=== PATIENT | female | born 1945 | race Caucasian/White ===

== ENCOUNTER 2023-11-12 07:58 | Outpatient (OUT) | payer MEDICARE, OTHER, SELFPAY ==
--- NOTE | 2023-11-12 08:17 | MM_ITS ---
Patient Name: LUIS CARLOS SERRANO MR#: [id number] : 1945 Exam Date: 11/12/2023 Ordering Doctor: DR Damon Fink . RADIOLOGY REPORT PROCEDURE: MM TOMOSYNTHESIS SCREENING BI COMPARISON: MG MAMM SCREEN 3D MAU CAD, 07/24/2022. MG MAMM SCREEN 3D MAU CAD, 06/29/2021. MG MAMM SCREEN MAU W CAD, 06/13/2020. MG MAMM SCREEN MAU W CAD, 05/16/2016. INDICATIONS: Screening Calculator Name NCI Breast Cancer Risk Assessment Tool 5 Year Breast Cancer Risk 1.20% Lifetime Breast Cancer Risk 2.40% Personal Breast Cancer No Personal Ovarian Cancer No Treatments None Family Cancers None LOCATION: [facility] BREAST COMPOSITION: Heterogeneously dense,which may obscure small masses. FINDINGS: DIAGNOSTIC CATEGORY 2--BENIGN FINDING: RIGHT BREAST: No significant suspicious finding. Scattered benign-appearing calcifications are present. No significant change has occurred. LEFT BREAST: No significant suspicious finding. Stable, chronic asymmetries. No significant change has occurred. RECOMMENDATIONS: ROUTINE MAMMOGRAM AND CLINICAL EVALUATION IN 12 MONTHS. PLEASE NOTE: A NORMAL MAMMOGRAM DOES NOT EXCLUDE THE POSSIBILITY OF BREAST CANCER. A CLINICALLY SUSPICIOUS PALPABLE LUMP SHOULD BE BIOPSIED. Dictated by: Carlin Leigh M.D. on 11/12/2023 at 14:19 Approved by: Carlin Legih M.D. on 11/12/2023 at 14:21
== END 2023-11-12 07:59 | disposition home or self-care (01) ==
PROVIDERS: PCP Family Medicine; Visit Provider Family Medicine
DX: Z12.31 Encounter for screening mammogram for malignant neoplasm of breast (principal)
CPT/HCPCS: 77063; 77067

== ENCOUNTER 2024-01-13 11:06 | Outpatient (OUT) | payer MEDICARE, OTHER, SELFPAY ==
--- OUTSIDE RECORDS SUMMARY | 2024-01-13 11:15 | XMS_ITS | CCD ---
Author Name Unknown Address [address] [place] [address] [address] [place] [id number] Organization [facility] Care Team Providers Care Shirt Folder Name Role Phone Beata Ngo Attending Unavailable RACHEL, DAMNO Primary Care Physician Luisito Sierra Unavailable Unavailable RACHEL, DR DAMON Dove Admitting Unavailable RACHEL, DR DAMON Dove Primary Care Unavailable RACHEL, DR DAMON Dove Attending Unavailable RAVEN, DR CARLIN Mandel Consulting Unavailable DEVANTEERETequila, DR DAMON Dove Consulting Unavailable Juan M TINAJERO Attending Unavailable Juan M TINAJERO Attending Unavailable RACHEL, DAMON Attending Unavailable RACHEL, DAMON Attending Unavailable Damon Ramos MD Primary Care Provider [phone] Allergies Allergy Classification Reported Allergen(s) Allergy Type Date of Onset Reaction(s) Facility (5 sources) Sulfamethoxazole / Trimethoprim; Translations: [sulfamethoxazole-tr imethoprim] Drug Allergy 01-28-20 17 Unknown (qualifier value), Itching [facility] (2 sources) Ciprofloxacin Drug Allergy 11-29-20 20 Other, Dizziness [facility] (2 sources) Sulfamethoxazole Allergy to substance 07-08-20 Rash [facility] (2 sources) Trimethoprim Drug Allergy 07-08-20 Rash [facility] Medications Current Medications Medication Drug Class(es) Dates Sig (Normalized) Sig (Original) Fiorinal (2 sources) Platelet Aggregation Inhibitor, Barbiturate, Nonsteroidal Anti-inflammatory Drug, Central Nervous System Stimulant, Methylxanthine Start: 08-18-2019 Fiorinal Oral, q6hr Start Date: 08/18/19 Status: Ordered atorvastatin 20 mg oral tablet (4 sources) HMG-CoA Reductase Inhibitor Start: 08-18-2019 atorvastatin (Lipitor) 20 MG tablet donepezil hydrochloride 5 mg oral tablet (2 sources) Start: 01-08-2024 take 1 tablet by mouth at bedtime donepezil (Aricept) 5 MG tablet Indications: Senile dementia (CMS/HCC) Take 1 tablet (5 mg) by mouth at bedtime 30 tablet 2 01/08/2024 Active Start: 01-08-2024 take 1 tablet by latonya th at bedtime donepezil (Aricept) 5 MG tablet Indications: Senile dementia (CMS/HCC) Take 1 tablet (5 mg) by mouth at bedtime 30 tablet 2 01/08/2024 Active estradiol 0.1 mg/ml vaginal cream (2 sources) Estrogen Start: 04-01-2023 Estrace 0.1 mg /g Cream 1 gram, Vaginal, MonWedFri, 42.5 gram, Refill(s) 5, Apply one gram 3x/ week., [facility], 163, cm, 06/10/22 11:26:00 EDT, Height/Length Dosing, 74, kg, 06/10/22 11:26:00 EDT, Weight Dosing Start Date: 04/01/23 Status: Ordered Start: 11-19-2021 Estrace 0.1 mg /g Cream 1 gram, Vaginal, MonWedFri, 42.5 gram, Refill(s) 5, Apply one gram 3x/ week., [facility], 163, cm, 11/19/21 10:42:00 EST, Height/Length Dosing, 74, kg, 11/19/21 10:42:00 EST, Weight Dosing Start Date: 11/19/21 Status: Ordered FLUoxetine 10 mg oral capsule (4 sources) Serotonin Reuptake Inhibitor Start: 08-18-2019 FLUoxetine (PROzac) 10 MG capsule hydroCHLOROthiazide 25 mg / triamterene 37.5 mg oral tablet (4 sources) Potassium-sparing Diuretic, Thiazide Diuretic Start: 04-04-2023 triamterene-hydroch lorothiazide (Maxzide-25) 37.5-25 MG tablet Start: 08-18-2019 take 1 tablet by mouth once da bria Maxzide 1 tab(s), Oral, Daily Start Date: 08/18/19 Status: Ordered nortriptyline 10 mg oral capsule (4 sources) Tricyclic Antidepressant Start: 06-23-2023 take 1 capsule by mouth at bedtime nortriptyline (Pamelor) 10 MG capsule Take 1 capsule by mouth at bedtime 0 06/23/2023 Active Start: 08-18-2019 take 1 capsule by mo uth three times daily Pamelor 10 mg Cap 10 mg = 1 cap(s), Oral, TID Start Date: 08/18/19 Status: Ordered triamcinolone acetonide 5 mg/ml topical cream (2 sources) Corticosteroid Start: 01-08-2024 triamcinolone (Kenalog) 0.5 % cream Indications: Dermatitis Apply topically 3 (three) times a day 60 g 1 01/08/2024 Active Start: 01-08-2024 triamcinolone (Kenalog) 0.5 % cream Indications: Dermatitis Apply topically 3 (three) times a day 60 g 1 01/08/2024 Active Problems Problem Classification Problem Date Documented Date Episodic/Chronic Allergic reactions (4 sources) Inflammatory dermatosis; Translations: [Dermatitis, unspecified] Onset: 01-08-2024 01-08-2024 Episodic Anxiety disorders (4 sources) Anxiety; Translations: [Generalized anxiety disorder] Onset: 11-04-2023 08-11-2019 Chronic Chronic kidney disease (2 sources) Chronic kidney disease stage 3A ; Translations: [Chronic kidney disease, stage 3a (HCC)] Onset: 11-04-2023 11-04-2023 Chronic Delirium, dementia, and amnestic and other cognitive disorders (4 sources) Senile dementia; Translations: [Unspecified dementia without behavioral disturbance] Onset: 11-04-2023 01-08-2024 Chronic Disorders of lipid metabolism (5 sources) Hypercholesterolemia; Translations: [Hyperlipidemia, unspecified] Onset: 07-30-2022 08-11-2019 Chronic Esophageal disorders (2 sources) Gastroesophageal reflux disease; Translations: [Gastro-esophageal reflux disease without esophagitis] Onset: 11-04-2023 11-04-2023 Chronic Essential hypertension (8 sources) Hypertensive disorder; Translations: [Essential (primary) hypertension] Onset: 07-24-2022 08-11-2019 Chronic Genitourinary symptoms and ill-defined conditions (7 sources) Stress incontinence (female) (male); Translations: [Genuine stress incontinence] Onset: 06-10-2022 Chronic Genitourinary symptoms and ill-defined conditions (8 sources) Sensation as if bladder still full; Translations: [Feeling of incomplete bladder emptying] Onset: 06-10-2022 Episodic Headache; including migraine (4 sources) Migraine; Translations: [Migraine without aura, not refractory ] Onset: 11-04-2023 08-11-2019 Chronic Mood disorders (2 sources) Recurrent major depressive episodes, moderate ; Translations: [Major depressive disorder, recurrent, moderate] Onset: 11-04-2023 11-04-2023 Chronic Other aftercare (1 source) [facility] [place]current[facility] drug therapy; Translations: [OTH INTERMEDIATE CURRENT DRUG THERAPY] Onset: 07-30-2022 Episodic Other aftercare (2 sources) Patient encounter status; Translations: [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] Onset: 11-04-2023 11-04-2023 Episodic Other diseases of bladder and urethra (1 source) Male urethral stricture; Translations: [Unspecified urethral stricture, male, unspecified site] Onset: 06-10-2022 Episodic Other screening for suspected conditions (not mental disorders or infectious disease) (1 source) Encounter for screening mammogram for malignant neoplasm of breast; Translations: [ENC SCR MAMMO MALIG NEOPLASM BREAST] Onset: 07-30-2022 Episodic Residual codes; unclassified (2 sources) Insomnia; Translations: [Insomnia, unspecified] Onset: 11-04-2023 11-04-2023 Episodic Unclassified (2 sources) Asymptomatic microscopic hematuria 11-17-2020 Unclassified (2 sources) Finding of sensation of bladder 08-11-2019 Urinary tract infections (4 sources) Chronic cystitis; Translations: [Other chronic cystitis without hematuria] Onset: 06-10-2022 Chronic Urinary tract infections (3 sources) Postinfective urethral stricture of female; Translations: [Postinfective urethral stricture, not elsewhere classified, female] Onset: 06-13-2023 11-17-2020 Episodic Results Test Name Value Interpretation Reference Range Facility Ambulatory Visit Summaryon 0 06-13-2023 Ambulatory Visit Summary CAPRI SERRANO :1945 Visit Date:06/13/2023 Ambulatory Visit Instructions Your Diagnosis Chronic cystitis Feeling of incomplete bladder emptying Urge incontinence Postinfective urethral stricture in female Tests Performed Urnls Dip Stick Auto w/o Microscopy POC 16447 Your Care Team Attending Physician - Juan M TINAJERO MD Primary Care Physician - DAMON RAMOS MD This Is Your Medications List estradiol topical (Estrace 0.1 mg/g Cream) Contact prescribing physician if questions or concerns ASA/butalbital/caffeine (Fiorinal) atorvastatin (atorvastatin 20 mg Tab) fluoxetine (FLUoxetine 10 mg Cap) hydrochlorothiazide-tri amterene (Maxzide) nortriptyline (Pamelor 10 mg Cap) Procedures Performed Dilation of urethra (12/10/2021), Cystoscopy (02/17/2019), Cystourethroscopy with dilation of urethral stricture (11/04/2014). Discharge Vitals Heart Rate (Peripheral) 80 Respiratory Rate 16 Blood Pressure 120/76 Height 163 cm Height 64 in Weight 64 kg Weight 140.8 lb BMI 24.09 What to do next Scheduled Follow-Up Appointments Friday 8:45 AM EDT With: JOE WHITTAKER, Juan M Mandel Where: [facility] Patient Educationon 06-13-20 Patient Education Overactive Bladder, Adult Overactive bladder is a condition in which a person has a sudden and frequent need to urinate. A person might also leak urine if he or she cannot get to the bathroom fast enough (urinary incontinence). Sometimes, symptoms can interfere with work or social activities. What are the causes? Overactive bladder is associated with poor nerve signals between your bladder and your brain. Your bladder may get the signal to empty before it is full. You may also have very sensitive muscles that make your bladder squeeze too soon. This condition may also be caused by other factors, such as: ? Medical conditions: ? Urinary tract infection. ? Infection of nearby tissues. ? Prostate enlargement. ? Bladder stones, inflammation, or tumors. ? Diabetes. ? Muscle or nerve weakness, especially from these conditions: ? A spinal cord injury. ? Stroke. ? Multiple sclerosis. ? Parkinson's disease. ? Other causes: ? Surgery on the uterus or urethra. ? Drinking too much caffeine or alcohol. ? Certain medicines, especially those that eliminate extra fluid in the body (diuretics). ? Constipation. What increases the risk? You may be at greater risk for overactive bladder if you: ? Are an older adult. ? Smoke. ? Are going through menopause. ? Have prostate problems. ? Have a neurological disease, such as stroke, dementia, Parkinson's disease, or multiple sclerosis (MS). ? Eat or drink alcohol, spicy food, caffeine, and other things that irritate the bladder. ? Are overweight or obese. What are the signs or symptoms? Symptoms of this condition include a sudden, strong urge to urinate. Other symptoms include: ? Leaking urine. ? Urinating 8 or more times a day. ? Waking up to urinate 2 or more times overnight. How is this diagnosed? This condition may be diagnosed based on: ? Your symptoms and medical history. ? A physical exam. ? Blood or urine tests to check for possible causes, such as infection. You may also need to see a health care provider who specializes in urinary tract problems. This is called a urologist. How is this treated? Treatment for overactive bladder depends on the cause of your condition and whether it is mild or severe. Treatment may include: ? Bladder training, such as: ? Learning to control the urge to urinate by following a schedule to urinate at regular intervals. ? Doing Kegel exercises to strengthen the pelvic floor muscles that support your bladder. ? Special devices, such as: ? Biofeedback. This uses sensors to help you become aware of your body's signals. ? Electrical stimulation. This uses electrodes placed inside the body (implanted) or outside the body. These electrodes send gentle pulses of electricity to strengthen the nerves or muscles that control the bladder. ? Women may use a plastic device, called a pessary, that fits into the vagina and supports the bladder. ? Medicines, such as: ? Antibiotics to treat bladder infection. ? Antispasmodics to stop the bladder from releasing urine at the wrong time. ? Tricyclic antidepressants to relax bladder muscles. ? Injections of botulinum toxin type A directly into the bladder tissue to relax bladder muscles. ? Surgery, such as: ? A device may be implanted to help manage the nerve signals that control urination. ? An electrode may be implanted to stimulate electrical signals in the bladder. ? A procedure may be done to change the shape of the bladder. This is done only in very severe cases. Follow these instructions at home: Eating and drinking ? Make diet or lifestyle changes recommended by your health care provider. These may include: ? Drinking fluids throughout the day and not only with meals. ? Cutting down on caffeine or alcohol. ? Eating a healthy and balanced diet to prevent constipation. This may include: ? Choosing foods that are high in fiber, such as beans, whole grains, and fresh fruits and vegetables. ? Limiting foods that are high in fat and processed sugars, such as fried and sweet foods. Lifestyle ? Lose weight if needed. ? Do not use any products that contain nicotine or tobacco. These include cigarettes, chewing tobacco, and vaping devices, such as e-cigarettes. If you need help quitting, ask your health care provider. General instructions ? Take [id number] and prescription medicines only as told by your health care provider. ? If you were prescribed an antibiotic medicine, take it as told by your health care provider. Do not stop taking the antibiotic even if you start to feel better. ? Use any implants or pessary as told by your health care provider. ? If needed, wear pads to absorb urine leakage. ? Keep a log to track how much and when you drink, and when you need to urinate. This will help your health care provider monitor your condition. ? Keep all f (more content not included)... Normal [facility] Urology Office/Clinic Noteon 06-13-2023 Urology Office/Clinic Note Chief Complaint 1yr HPI Staff This is a 78 year old female here for 1 year F/U. Previous DX: chronic cystitis, stress incontinence, feeling of incomplete bladder emptying and urethral stricture. S/P UD done 12/10/21. Pt. using Estradiol cream 1 gram 3x weekly. Denies pain/burning & visible blood. Denies any infections since last encounter. Denies leaking, unless she waits to last minute, and with that it is very rare. Occasional double voiding, uses restroom, then may need to go again 15min later. Usually occurs once daily. Feels empty after voiding. PVR 84ml Denies any current urinary concerns at this time. History of Present Illness Tests reviewed: reviewed UA I have reviewed the previous health record information and history for this patient from Dr. Tinajero. I have reviewed and verified the staff HPI to be accurate for this encounter. There have been no associated fever, chills, flank pain, or blood in the urine. Denies any urinary infections since last encounter. Review of Systems PHQ Score Initial Depression Screen Score: 0 ROS - Provider Constitutional: denies weight loss, denies hot flashes. Eyes: denies eye problems. Gastrointestinal: denies nausea, denies vomiting. Cardiovascular: denies chest pain or angina. Integumentary: no dryness Musculoskeletal: denies musculoskeletal symptoms. ENMT: denies otolaryngeal symptoms. Respiratory: no shortness of breath. Heme/Lymph: denies easy bleeding tendency, denies easy bruising tendency. Psychiatric: no confusion, no anxiety. Genitourinary: See HPI. Physical Exam Vitals & Measurements HR: 80(Peripheral) RR: 16 BP: 120/76 HT: 64 in HT: 163 cm WT: 64 kg WT: 140.8 lb BMI: 24.09 General Appearance: alert , no acute distress, well nourished, well developed female. Genitourinary: bladder nonpalpable, no flank pain. Assessment/Plan 1. Chronic cystitis (N30.20: Other chronic cystitis without hematuria) Patient continues Estradiol cream 1 g 3x/weekly, states she has been using 1.5 g. Utilizing applicator. Denies infections since last encounter. UA today neg for infection or blood. Follow up in 1 year. Patient instructed to call the office when refills are needed. All questions/concerns were discussed. Pt to call the office if she encounters any issues prior. Pt acknowledges understanding and agrees with plan. 2. Feeling of incomplete bladder emptying (R39.14: Feeling of incomplete bladder emptying) PVR 84 ml. Patient feels she is fully emptying, no current issues. Advised patient to bend over and push on bladder to fully empty even if she feels empty. 3. Urge incontinence (N39.41: Urge incontinence) Rare, only if patient holds it for too long. Usually voids every 2 hours. 4. Postinfective urethral stricture in female (N35.12: Postinfective urethral stricture, not elsewhere classified, female) S/p UD 12/10/21. Follow-up With When Contact Information JOE WHITTAKER, Juan M Mandel, URL [facility] [address], [place] [address]- Additional Instructions: 1 year Patient Education Overactive Bladder, Adult I, Any Rosas, personally scribed for Dr. Tinajero on 06/13/2023 10:26:19. . Documentation recorded by the scribe, Yasmeen Mathur, accurately reflects the services(s) I performed and decisions made by me. Authenticated by Dr. Tinajero on 06/13/2023 10:28:05. Problem List/Past Medical History Ongoing Anxiety Asymptomatic microscopic hematuria Chronic cystitis Elevated cholesterol Feeling of incomplete bladder emptying Frequent urination HTN (hypertension) Migraine headache Postinfective urethral stricture in female Split urinary stream Stress incontinence Urge incontinence Urinary urgency Historical No qualifying data Procedure/Surgical History Dilation of urethra (12/10/2021), Cystoscopy (02/17/2019), Cystourethroscopy with dilation of urethral stricture (11/04/2014). Medications atorvastatin 20 mg Tab, 20 mg= 1 tab(s), Oral, Daily Estrace 0.1 mg/g Cream, 1 gm, Vaginal, MonWedFri, 5 refills Fiorinal, Oral, q6hr FLUoxetine 10 mg Cap, 10 mg= 1 cap(s), Oral, Daily Maxzide, 1 tab(s), Oral, Daily Pamelor 10 mg Cap, 10 mg= 1 cap(s), Oral, TID Allergies Bactrim (Unknown) Social History Tobacco Never (less than 100 in lifetime) Tobacco Use:. Never Smokeless Tobacco Use:. Household tobacco concerns: No., 06/13/2023 Family History Hypertension: Mother and Father. Immunizations Vaccine Date Status Comments influenza virus vaccine, inactivated - Not Given Patient Refuses Lab Results Ambulatory Point of Care Results Bilirubin Urine Dipstick: Negative (06/13/23 09:36:00) Blood Urine Dipstick: Negative (06/13/23 09:36:00) Glucose Urine Dipstick: Negative (06/13/23 09:36:00) Ketones Urine Dipstick: Negative (06/13/23 09:36:00) Leukocytes Urine Dipstick: 1+ Small (06/13/23 09:36:00) Nitrite Urine Dipstick: Negative (more content not included)... Normal [facility] Comment on above: Result Comment: Elec tronically Signed By: Juan M TINAJERO MD\.br\Date and Time Signed: 06/13/23 10:28 EDT\.br\Electronically Co-Signed By: Any Rosas\.br\Date and Time Co-Signed: 06/13/23 10:26 EDT CBC AUTO DIFFon 07-24-2022 BASO # 0.0 103/ul Normal 0.0-0.[address] [facility] Comment on above: Performed By: #### C BC #### [facility] [address] [address] [address] Finn Wolff Basophils/100 WBC (Bld) 0.6 % Normal 0.2-2.0 [facility] Comment on above: Performed By: #### C BC #### [facility] [address] [place] [address] Dr. Finn Wolff EO # 0.1 103/ul Normal 0.0-0.[address] [facility] Comment on above: Performed By: #### C BC #### [facility] [address] [place] [address] Dr. Finn Wolff Eosinophils/100 WBC (Bld) 1.5 % Normal 0.9-7.0 [facility] Comment on above: Performed By: #### C BC #### [facility] [address] [place] [address] Dr. Finn Wolff Erythrocyte distribution width (RBC) [Ratio] 13.1 % Normal 11.0-15.0 [facility] Comment on above: Performed By: #### C BC #### [facility] [address] [place] [address] Dr. Finn Wolff Hematocrit (Bld) [Volume fraction] 42.0 % Normal 36.0-48.0 [facility] Comment on above: Performed By: #### C BC #### [facility] [address] [place] [address] Dr. Finn Wolff Hemoglobin (Bld) [Mass/Vol] 14.0 g/dL Normal 12.0-16.0 [facility] Comment on above: Performed By: #### C BC #### [facility] [address] [place] [address] Dr. Finn Wolff IG # 0.01 10e3/ul Normal 0.00-0.[address] [facility] Comment on above: Performed By: #### C BC #### [facility] [address] [place] [address] Dr. Finn Wolff IG % 0.2 % Normal 0.0-0.[address] [facility] Comment on above: Performed By: #### C BC #### [facility] [address] [place] [address] Dr. Finn Wolff LYMPH # 1.1 103/ul Critically low 1.2-3.[address] [facility] Comment on above: Performed By: #### C BC #### [facility] [address] [place] [address] Dr. Finn Wolff Lymphocytes/100 WBC (Bld) 21.1 % Normal 20.5-60.[address] [facility] Comment on above: Performed By: #### C BC #### [facility] [address] [place] [address] Dr. Finn Wolff MANUAL DIFF REQ NO Normal [facility] Comment on above: Performed By: #### C BC #### [facility] [address] [place] [address] Dr. Finn Wolff MCH (RBC) [Entitic mass] 33.4 pg Normal 26.7-34.[address] [facility] Comment on above: Performed By: #### C BC #### [facility] [address] [place] [address] Dr. Finn Wolff MCHC (RBC) [Mass/Vol] 33.3 g/dL Normal 29.9-35.2 [facility] Comment on above: Performed By: #### C BC #### [facility] [address] [place] [address] Dr. Finn Wolff MCV (RBC) [Entitic vol] 100.2 fL Critically high 81.0-99.[address] [facility] Comment on above: Performed By: #### C BC #### [facility] [address] [place] [address] Dr. Finn Wolff MONO # 0.7 103/ul Normal 0.3-0.[address] [facility] Comment on above: Performed By: #### C BC #### [facility] [address] [place] [address] Dr. Finn Wolff Monocytes/100 WBC (Bld) 12.5 % Critically high 1.7-12.[address] [facility] Comment on above: Performed By: #### C BC #### [facility] [address] [place] [address] Dr. Finn Wolff NEUT # 3.4 103/ul Normal 1.4-6.[address] [facility] Comment on above: Performed By: #### C BC #### [facility] [address] [place] [address] Dr. Finn Wolff Neutrophils/100 WBC (Bld) 64.1 % Normal 43.0-75.[address] [facility] Comment on above: Performed By: #### C BC #### [facility] [address] [place] [address] Dr. Finn Wolff Platelet mean volume (Bld) [Entitic vol] 10.7 fL Normal 9.5-13.[address] [facility] Comment on above: Performed By: #### C BC #### [facility] [address] [place] [address] Dr. Finn Wolff PLT 262 103/ul Normal 150-450 [facility] Comment on above: Performed By: #### C BC #### [facility] [address] [place] [address] Dr. Finn Wolff RBC 4.19 106/ul Critically low 4.20-5.40 [facility] Comment on above: Performed By: #### C BC #### [facility] [address] [place] [address] Dr. Finn Wolff WBC 5.4 103/ul Normal 4.0-11.[address] [facility] Comment on above: Performed By: #### C BC #### [facility] [address] [place] [address] Dr. Finn Wolff LIPID PROFILEon 07-24-2022 CHOL-HDL RATIO NORM SEE BELOW Normal [facility] Comment on above: Result Comment: 3.3 - 4.4 LOW RISK 4.4 - 7.1 AVERAGE RISK 7.1 - 11.0 MODERATE RISK >11.0 HIGH RISK Performed By: #### A LT, AST, LIPID, BMP #### [facility] [address] [address] [address] Finn Wolff Cholesterol [Mass/Vol] 141 mg/dL Normal <=200 [facility] Comment on above: Performed By: #### A LT, AST, LIPID, BMP #### [facility] [address] [address] [address] Finn Wolff Cholesterol in HDL [Mass/Vol] 68 mg/dL Critically high 40-[address] [facility] Comment on above: Performed By: #### A LT, AST, LIPID, BMP #### [facility] [address] [address] [address] Finn Wolff Cholesterol in LDL [Mass/Vol] 52.6 mg/dL Normal [facility] Comment on above: Performed By: #### A LT, AST, LIPID, BMP #### [facility] [address] [address] [address] Finn Wolff Cholesterol.total/ Cholesterol in HDL [Mass ratio] 2.1 {ratio} Normal [facility] Comment on above: Performed By: #### A LT, AST, LIPID, BMP #### [facility] [address] [address] [address] Finn Wolff HDL NORMAL > or = 60 mg/dl - LO W CARDIOVASCULAR RISK <40 mg/dl - HIGH CARDIOVASCULAR RISK Normal [facility] Comment on above: Performed By: #### A LT, AST, LIPID, BMP #### [facility] [address] [address] [address] Finn Wolff LDL CALC NORMAL SEE BELOW Normal [facility] Comment on above: Result Comment: <100 mg/dl OPTIMAL 100 - 129 mg/dl NEAR OR ABOVE OPTIMAL 130 - 159 mg/dl BORDERLINE HIGH 160 - 189 mg/dl HIGH >190 mg/dl VERY HIGH Performed By: #### A LT, AST, LIPID, BMP #### [facility] [address] [place], [place] [address] Dr. Finn Wolff Triglyceride [Mass/Vol] 102 mg/dL Normal <=[address] [facility] Comment on above: Performed By: #### A LT, AST, LIPID, BMP #### [facility] [address] [address] [address] Finn Wolff VLDL CALC 20.4 mg/dL Normal [facility] Comment on above: Performed By: #### A LT, AST, LIPID, BMP #### [facility] [id number] Finn Wolff MG MAMM SCREEN 3D MAU CADon 07-24-2022 MG MAMM SCREEN 3D MAU CAD Patient: CAPRI SERRANO Exam Date: 07/24/2022 : 1945 Gender:F Ordering : DR DAMON RAMOS . Admission #: [id number] Family : Order #: [id number] CLICK HERE TO VIEW EXAM RADIOLOGY REPORT PROCEDURE: MAMMOGRAM SCREENING 3D BILATERAL CAD COMPARISON: MG MAMM SCREEN 3D MAU CAD, 06/29/2021. MG MAMM SCREEN MAU W CAD, 06/13/2020. INDICATIONS: Screening mammography Calculator Name NCI Breast Cancer Risk Assessment Tool 5 Year Breast Cancer Risk 1.20% Lifetime Breast Cancer Risk 2.50% Personal Breast Cancer No Personal Ovarian Cancer No Treatments None Family Cancers None LOCATION: [facility] BREAST COMPOSITION: Heterogeneously dense,which may obscure small masses. FINDINGS: DIAGNOSTIC CATEGORY 2--BENIGN FINDING: RIGHT BREAST: No significant suspicious finding. Scattered benign-appearing calcifications are present. No significant change has occurred. LEFT BREAST: No significant suspicious finding. Scattered benign-appearing nodules are present. No significant change has occurred. RECOMMENDATIONS: ROUTINE MAMMOGRAM AND CLINICAL EVALUATION IN 12 MONTHS. PLEASE NOTE: A NORMAL MAMMOGRAM DOES NOT EXCLUDE THE POSSIBILITY OF BREAST CANCER. A CLINICALLY SUSPICIOUS PALPABLE LUMP SHOULD BE BIOPSIED. Dictated by: Carlin Leigh M.D. on 07/26/2022 at 12:43 Approved by: Carlin Leigh M.D. on 07/26/2022 at 12:49 Normal [facility] PROF CHEM 8 (BAS METB)on Anion gap [Moles/Vol] 9.6 mmol/L Normal [facility] Comment on above: Performed By: #### A LT, AST, LIPID, BMP #### [facility] [address] [address] [address] Finn Wolff Calcium [Mass/Vol] 8.9 mg/dL Normal 8.5-10.1 [facility] Comment on above: Performed By: #### A LT, AST, LIPID, BMP #### [facility] [address] [address] [address] Finn Wolff Chloride [Moles/Vol] 100 mmol/L Normal 98-107 [facility] Comment on above: Performed By: #### A LT, AST, LIPID, BMP #### [facility] [address] [place] [address] Dr. Finn Wolff CO2 [Moles/Vol] 31.7 mmol/L Normal 21.0-32.0 [facility] Comment on above: Performed By: #### A LT, AST, LIPID, BMP #### [facility] [address] [place] [address] Dr. Finn Wolff Creatinine [Mass/Vol] 1.15 mg/dL Critically high 0.55-1.02 [facility] Comment on above: Performed By: #### A LT, AST, LIPID, BMP #### [facility] [address] [place] [address] Dr. Finn Wolff EGFR-AF CAMEROONIAN 56 mL/min/1.73m2 Critically low >=60 [facility] Comment on above: Performed By: #### A LT, AST, LIPID, BMP #### [facility] [address] [place] [address] Dr. Finn Wolff EGFR-NON AF CAMEROONIAN 46 mL/min/1.73m2 Critically low >=60 [facility] Comment on above: Performed By: #### A LT, AST, LIPID, BMP #### [facility] [address] [place] [address] Dr. Finn Wolff Glucose [Mass/Vol] 88 mg/dL Normal 74-106 [facility] Comment on above: Performed By: #### A LT, AST, LIPID, BMP #### [facility] [address] [place] [address] Dr. Finn Wolff Potassium [Moles/Vol] 3.3 mmol/L Critically low 3.5-5.[address] [facility] Comment on above: Performed By: #### A LT, AST, LIPID, BMP #### [facility] [address] [place] [address] Dr. Finn Wolff Sodium [Moles/Vol] 138 mmol/L Normal 136-145 [facility] Comment on above: Performed By: #### A LT, AST, LIPID, BMP #### [facility] [address] [place] [address] Dr. Finn Wolff Urea nitrogen [Mass/Vol] 19.0 mg/dL Critically high 7.0-18.[address] [facility] Comment on above: Performed By: #### A LT, AST, LIPID, BMP #### [facility] [address] [place] [address] Dr. Finn Wolff Urea nitrogen/Creatinin e [Mass ratio] 16.5 mg/mg Normal [facility] Comment on above: Performed By: #### A LT, AST, LIPID, BMP #### [facility] [address] [place] [address] Dr. Finn Kurtz 07-24-2022 AST [Catalytic activity/Vol] 23 U/L Normal 15-[address] [facility] Comment on above: Performed By: #### A LT, AST, LIPID, BMP #### [facility] [address] [place] [address] Dr. Finn Dietrich 07-24-2022 ALT [Catalytic activity/Vol] 21 U/L Normal 14-[address] [facility] Comment on above: Performed By: #### A LT, AST, LIPID, BMP #### [facility] [address] [place] [address] Dr. Finn Wolff Urine Cultureon 2019 Bacteria identified Cx Nom (U) Reason for Exam Dysuria Urine ORGANISM: Escherichia coli (O:ESCCOL) [place] Count 50,000 Aerobic DANAE Charge (Neg) -- SUSCEPTIBILITY - ORGANISM: O:ESCCOL ANTIBIOTIC INTERPRETATION DANAE Amikacin S <16 Amoxacillin/K Clavulanate S <8/4 Ampicillin S <8 Ampicillin/Sulbactam S <8/4 Aztreonam S <8 Cefazolin S <8 Cefepime S <8 Cefotetan S <16 Ceftazidime S <1 Ceftriaxone S <8 Cefuroxime S <4 Ciprofloxacin S <1 Ertapenem S <2 Gentamicin S <4 Levofloxacin S <2 Meropenem S <4 Nitrofurantoin S <32 Piperacillin/Tazobactam S <16 Tetracycline S <4 Tobramycin S <4 Trimethoprim/Sulfametho xazole S <2/38 S = SUSCEPTIBLE I = INTERMEDIATE R = RESISTANT BLANK = DATA NOT AVAILABLE, OR DRUG NOT ADVISABLE OR TESTED R* = RESISTANCE DUE TO EXTENDED SPECTRUM BETA-LACTAMASES ESBL = EXTENDED SPECTRUM BETA-LACTAMASE TFG = THYMIDINE-DEPENDENT STRAIN SIMONE = BETA-LACTAMASE POSITIVE IB = INDUCIBLE BETA-LACTAMASE. APPEARS IN PLACE OF 'S' WITH SPECIES KNOWN TO POSSESS INDUCIBLE BETA-LACTAMASES. POTENTIALLY THEY MAY BECOME RESISTANT TO ALL B-LACTAM DRUGS. PERFORMED BY: [place] [address] [facility] [employer] SCARLETT WHIPPLE M.D. [facility] Comment on above: Performed By: #### C UU #### [address] Vital Signs Date Time Vital Sign Value Performing Clinician Facility 01-08-2024 10:52-0500 Body height 167.6 cm Damon Ramos MD Work Phone: [facility] 01-08-2024 10:52-0500 Body mass index (BMI) [Ratio] 23.89 kg/m2 Damon Ramos MD Work Phone: [facility] 01-08-2024 10:52-0500 Body temperature 97.11 [degF] Damon Ramos MD Work Phone: [facility] 01-08-2024 10:52-0500 Body weight 67.13 kg Damon Ramos MD Work Phone: [facility] 01-08-2024 10:52-0500 Diastolic blood pressure 80 mm[Hg] Damon Ramos MD Work Phone: [facility] 01-08-2024 10:52-0500 Heart rate 101 /min Damon Ramos MD Work Phone: [facility] 01-08-2024 10:52-0500 SaO2% (BldA) [Mass fraction] 97 % Damon Ramos MD Work Phone: [facility] 01-08-2024 10:52-0500 Systolic blood pressure 140 mm[Hg] Damon Ramos MD Work Phone: [facility] 06-13-2023 09:42-0400 Blood Pressure Location Juan M TINAJERO [facility] 06-13-2023 09:42-0400 Diastolic blood pressure 76 mm[Hg] Juan M TINAJERO [facility] 06-13-2023 09:42-0400 Heart rate 80 /min Juan M TINAJERO [facility] 06-13-2023 09:42-0400 Respiratory rate 16 /min Juan M TINAJERO [facility] 06-13-2023 09:42-0400 Systolic blood pressure 120 mm[Hg] Juan M TINAJERO [facility] Encounters Encounter Date Encounter Type Care Provider Facility Start: 06-14-2024 ambulatory Juan M Bulli ty:[facility] [place] Start: 01-08-2024 End: 01-08-2024 ambulatory DAMON RAMOS Not Available Start: 01-08-2024 End: 01-08-2024 Office outpatient visit 15 minutes Damon Ramos MD Work Phone: [facility] Comment on above: Dermatitis (Primary Dx); Senile dementia (CMS/HCC) Start: 11-04-2023 Patient encounter procedure Damon Ramos MD Work Phone: [facility] Start: 11-04-2023 End: 11-04-2023 ambulatory DAMON RAMOS Not Available Start: 06-13-2023 End: 06-14-2023 ambulatory Juan M TINAJERO Facility:[facility] Start: 06-13-2023 End: 06-13-2023 Patient encounter procedure Juan M TINAJERO [facility] Start: 07-24-2022 End: 07-25-[address] DAMON RAMOS Facility: Start: 06-10-2022 End: 06-10-2022 Patient encounter procedure Juan M TINAJERO [facility] Start: 2019 End: 2019 Patient encounter procedure Beata Ngo Facility:[facility] Procedures Date Procedure Procedure Detail Performing Clinician Start: 12-10-2021 Dilation of urethra Aaliyah TINAJERO Start: 02-17-2019 Cystoscopy Juan M GUERRERO Start: 11-04-2014 Cystourethroscopy wi dilation of urethral stricture Juan M TINAJERO Comment on above: 02/16/19 Plan of Treatment Date Care Activity Detail Author Start: 11-04-2024 Medicare Annual Well ness (AWV) Medicare Annual Wellness (AWV) [facility] Start: 07-08-2024 End: 07-08-2024 Patient encounter procedure 07/08/2024 10:20 AM EDT Office Visit [facility] [address] [place] [address] Lina Rayo, PROJECT MGR[employer]SUPERVISORY GEOGRAPHER [address] [place] [address] [facility] Start: 05-05-2024 End: 05-05-2024 Patient encounter procedure 05/05/2024 9:30 AM EDT [facility] [address] [place] [id number] Damon Ramos MD [address] [place] [id number] [facility] Start: 02-10-2024 End: 02-10-2024 Patient encounter procedure 02/10/2024 10:15 AM EDT [facility] [address] [place] [phone] Damon Ramos MD [address] [place] [address] [facility] Start: 08-01-2023 Influenza vaccination Influenza Vacc ine (#1) [facility] Start: 2012 Pneumococcal Vaccine : 65+ Years (1 - PCV) Pneumococcal Vaccine: 65+ Years (1 - PCV) [facility] Immunizations Immunization Date Immunization Notes Care Provider Fa cility NEGATED: Highlighted row has not occurred!11-17-2020 influenza virus vaccine, unspecified formulation Juan M TINAJERO [facility] Payers Date Payer Category Payer Medicare [id number] 2019 Medicare [id number] 2019 Self-pay 2017 Managed Care HMO (unspecified) [employer]ET[employer] AETNA [id number] 2017-Present [address] [place] [address] HMO [id number] 2012 Medicare MEDICARE MEDICAR E PART B [id number] 2012-Present [address] [place] [address] Medicare [id number] 1959 Medicare [id number] 1959 Private Health Insurance [id number] 1945 Unknown [id number] 1945 Unknown [id number] 1945 Unknown [id number] 1945 Unknown [id number] 1945 Unknown [id number] Unknown [id number] Social History Date Type Detail Facility Start: 11-19-2021 End: 09-25-2023 Tobacco smoking status Never smoked tobacco (finding) [facility] Start: 11-04-2023 End: 01-08-2024 Sex Assigned At Female [facility] Tobacco smoking status Never [facility] Start: 09-25-2023 Tobacco use and exposure Smokeless tobacco non-user [facility] Start: 01-08-2024 Alcohol intake Current drinke r of alcohol (finding) [facility] Start: 11-04-2023 End: 01-08-2024 History of Social function [facility] Within the last year , have you been afraid of your partner or ex-partner? No [facility] Are you now , , , , never or living with a partner? [facility] How often to you hav e a drink containing alcohol? Monthly or less [facility] How many standard drinks containing alcohol do you have on a typical day? 1 or 2 [facility] How often do you hav e 6 or more drinks on 1 occasion? Never [facility] Do you feel stress - tense, restless, nervous, or anxious, or unable to sleep at night because your mind is troubled all the time - these days [OSQ] To some extent [facility] (I/We) worried wheth er (my/our) food would run out before (I/we) got money to buy more. Never true [facility] Start: 07-05-2023 Alcohol Comment Alcohol: 1 or 2 drinks on a typical day/monthly or less Caffeine: 2-3 cups/day coffee [facility] Start: 1945 Sex Assigned At Not on file [facility] Functional Status Date Assessment Result Facility 06-13-2023 Functional Status N/A [facility] 06-10-2022 Functional Status N/A [facility] History of Present illness Narrative 01-08-2024 Damon Ramos MD - 01/08/2024 11:25 AM Bria Ramos MD - 01/08/2024 11:25 AM Bria Ramos MD - 01/08/2024 10:45 AM EST Note Date & Type Note Facility 01-08-2024 History of Presen t illness Narrative Associated Problem(s): Senile dementia (CMS/HCC) Worsening dementia and start aricept. Associated Problem(s): Dermatitis Unclear etiology of rash but appears to be related to dry skin. Start steroid cream and use lotion several times a day. Subjective Patient ID: Capri Serrano is a 79 y.o. female who presents for Rash (Rash on breast). C/o rash for several months. Rash on left breast and left chest. Rash spread to left arm and abdomen. No change since first appeared. Rash red and raised. Not spreading for several weeks. No change in rash and not fading or more intense. C/o itching but not painful or burning. No change in soap, lotion, or detergent. No new medication or foods. Using OTC cream and helps with itching. Concerned of dementia. Notice increased forgetfulness and misplacing things. Forgets conversations and repeats self. feels patient should try medication and patient willing. Rash Pertinent negatives include no cough, diarrhea, shortness of breath or vomiting. Review of Systems Respiratory: Negative for cough, shortness of breath and wheezing. Cardiovascular: Negative for chest pain and palpitations. Gastrointestinal: Negative for abdominal pain, diarrhea, nausea and vomiting. Genitourinary: Negative for dysuria. Skin: Positive for rash. Objective Physical Exam Constitutional: General: She is not in acute distress. Appearance: Normal appearance. HENT: Head: Normocephalic. Right Ear: Tympanic membrane normal. Left Ear: Tympanic membrane normal. Eyes: Extraocular Movements: Extraocular movements intact. Pupils: Pupils are equal, round, and reactive to light. Cardiovascular: Rate and Rhythm: Normal rate and regular rhythm. Heart sounds: No murmur heard. No friction rub. No gallop. Pulmonary: Effort: Pulmonary effort is normal. Breath sounds: Normal breath sounds. No wheezing, rhonchi or rales. Abdominal: General: Bowel sounds are normal. There is no distension. Palpations: Abdomen is soft. Tenderness: There is no abdominal tenderness. There is no guarding or rebound. Musculoskeletal: Cervical back: Neck supple. Right lower leg: No edema. Left lower leg: No edema. Neurological: Mental Status: She is alert. Assessment/Plan Problem List Items Addressed This Visit Senile dementia (CMS/HCC) Worsening dementia and start aricept. Relevant Medications donepezil (Aricept) 5 MG tablet Dermatitis - Primary Unclear etiology of rash but appears to be related to dry skin. Start steroid cream and use lotion several times a day. Relevant Medications triamcinolone (Kenalog) 0.5 % cream documented in this encounter [facility] Discharge instructions 06-13-2023 Note Date & Type Note Facility 06-13-2023 Hospital Discharg e instructions Patient Education 06/13/2023 10:25:57 Overactive Bladder, Adult Overactive Bladder, Adult Overactive bladder is a condition in which a person has a sudden and frequent need to urinate. A person might also leak urine if he or she cannot get to the bathroom fast enough (urinary incontinence). Sometimes, symptoms can interfere with work or social activities. What are the causes? Overactive bladder is associated with poor nerve signals between your bladder and your brain. Your bladder may get the signal to empty before it is full. You may also have very sensitive muscles that make your bladder squeeze too soon. This condition may also be caused by other factors, such as: Medical conditions: ?Urinary tract infection. ?Infection of nearby tissues. ?Prostate enlargement. ?Bladder stones, inflammation, or tumors. ?Diabetes. ?Muscle or nerve weakness, especially from these conditions: ?A spinal cord injury. ?Stroke. ?Multiple sclerosis. ?Parkinson's disease. Other causes: ?Surgery on the uterus or urethra. ?Drinking too much caffeine or alcohol. ?Certain medicines, especially those that eliminate extra fluid in the body (diuretics). ?Constipation. What increases the risk? You may be at greater risk for overactive bladder if you: Are an older adult. Smoke. Are going through menopause. Have prostate problems. Have a neurological disease, such as stroke, dementia, Parkinson's disease, or multiple sclerosis (MS). Eat or drink alcohol, spicy food, caffeine, and other things that irritate the bladder. Are overweight or obese. What are the signs or symptoms? Symptoms of this condition include a sudden, strong urge to urinate. Other symptoms include: Leaking urine. Urinating 8 or more times a day. Waking up to urinate 2 or more times overnight. How is this diagnosed? This condition may be diagnosed based on: Your symptoms and medical history. A physical exam. Blood or urine tests to check for possible causes, such as infection. You may also need to see a health care provider who specializes in urinary tract problems. This is called a urologist. How is this treated? Treatment for overactive bladder depends on the cause of your condition and whether it is mild or severe. Treatment may include: Bladder training, such as: ?Learning to control the urge to urinate by following a schedule to urinate at regular intervals. ?Doing Kegel exercises to strengthen the pelvic floor muscles that support your bladder. Special devices, such as: ?Biofeedback. This uses sensors to help you become aware of your body's signals. ?Electrical stimulation. This uses electrodes placed inside the body (implanted) or outside the body. These electrodes send gentle pulses of electricity to strengthen the nerves or muscles that control the bladder. ?Women may use a plastic device, called a pessary, that fits into the vagina and supports the bladder. Medicines, such as: ?Antibiotics to treat bladder infection. ?Antispasmodics to stop the bladder from releasing urine at the wrong time. ?Tricyclic antidepressants to relax bladder muscles. ?Injections of botulinum toxin type A directly into the bladder tissue to relax bladder muscles. Surgery, such as: ?A device may be implanted to help manage the nerve signals that control urination. ?An electrode may be implanted to stimulate electrical signals in the bladder. ?A procedure may be done to change the shape of the bladder. This is done only in very severe cases. Follow these instructions at home: Eating and drinking Make diet or lifestyle changes recommended by your health care provider. These may include: ?Drinking fluids throughout the day and not only with meals. ?Cutting down on caffeine or alcohol. ?Eating a healthy and balanced diet to prevent constipation. This may include: ?Choosing foods that are high in fiber, such as beans, whole grains, and fresh fruits and vegetables. ?Limiting foods that are high in fat and processed sugars, such as fried and sweet foods. Lifestyle Lose weight if needed. Do not use any products that contain nicotine or tobacco. These include cigarettes, chewing tobacco, and vaping devices, such as e-cigarettes. If you need help quitting, ask your health care provider. General instructions Take wxdl-imn-kadsumc and prescription medicines only as told by your health care provider. If you were prescribed an antibiotic medicine, take it as told by your health care provider. Do not stop taking the antibiotic even if you start to feel better. Use any implants or pessary as told by your health care provider. If needed, wear pads to absorb urine leakage. Keep a log to track how much and when you drink, and when you need to urinate. This will help your health care provider monitor your condition. Keep all follow-up visits. This is important. Contact a health care provider if: You have a fever or chills. Your symptoms do not get better with treatment. Your pain and discomfort get worse. You have more frequent urges to urinate. Get help right away if: You are not able to control your bladder. Summary Overactive bladder refers to a condition in which a person has a sudden and frequent need to urinate. Several conditions may lead to an overactive bladder. Treatment for overactive bladder depends on the cause and severity of your condition. Making lifestyle changes, doing Kegel exercises, keeping a log, and taking medicines can help with this condition. This information is not intended to replace advice given to you by your health care provider. Make sure you discuss any questions you have with your health care provider. Document Revised: 08/06/2021 Document Reviewed: 08/06/2021 [employer] Patient Education 2022 [employer]. 06/13/2023 10:25:57 Overactive Bladder, Adult Overactive Bladder, Adult Overactive bladder is a condition in which a person has a sudden and frequent need to urinate. A person might also leak urine if he or she cannot get to the bathroom fast enough (urinary incontinence). Sometimes, symptoms can interfere with work or social activities. What are the causes? Overactive bladder is associated with poor nerve signals between your bladder and your brain. Your bladder may get the signal to empty before it is full. You may also have very sensitive muscles that make your bladder squeeze too soon. This condition may also be caused by other factors, such as: Medical conditions: ?Urinary tract infection. ?Infection of nearby tissues. ?Prostate enlargement. ?Bladder stones, inflammation, or tumors. ?Diabetes. ?Muscle or nerve weakness, especially from these conditions: ?A spinal cord injury. ?Stroke. ?Multiple sclerosis. ?Parkinson's disease. Other causes: ?Surgery on the uterus or urethra. ?Drinking too much caffeine or alcohol. ?Certain medicines, especially those that eliminate extra fluid in the body (diuretics). ?Constipation. What increases the risk? You may be at greater risk for overactive bladder if you: Are an older adult. Smoke. Are going through menopause. Have prostate problems. Have a neurological disease, such as stroke, dementia, Parkinson's disease, or multiple sclerosis (MS). Eat or drink alcohol, spicy food, caffeine, and other things that irritate the bladder. Are overweight or obese. What are the signs or symptoms? Symptoms of this condition include a sudden, strong urge to urinate. Other symptoms include: Leaking urine. Urinating 8 or more times a day. Waking up to urinate 2 or more times overnight. How is this diagnosed? This condition may be diagnosed based on: Your symptoms and medical history. A physical exam. Blood or urine tests to check for possible causes, such as infection. You may also need to see a health care provider who specializes in urinary tract problems. This is called a urologist. How is this treated? Treatment for overactive bladder depends on the cause of your condition and whether it is mild or severe. Treatment may include: Bladder training, such as: ?Learning to control the urge to urinate by following a schedule to urinate at regular intervals. ?Doing Kegel exercises to strengthen the pelvic floor muscles that support your bladder. Special devices, such as: ?Biofeedback. This uses sensors to help you become aware of your body's signals. ?Electrical stimulation. This uses electrodes placed inside the body (implanted) or outside the body. These electrodes send gentle pulses of electricity to strengthen the nerves or muscles that control the bladder. ?Women may use a plastic device, called a pessary, that fits into the vagina and supports the bladder. Medicines, such as: ?Antibiotics to treat bladder infection. ?Antispasmodics to stop the bladder from releasing urine at the wrong time. ?Tricyclic antidepressants to relax bladder muscles. ?Injections of botulinum toxin type A directly into the bladder tissue to relax bladder muscles. Surgery, such as: ?A device may be implanted to help manage the nerve signals that control urination. ?An electrode may be implanted to stimulate electrical signals in the bladder. ?A procedure may be done to change the shape of the bladder. This is done only in very severe cases. Follow these instructions at home: Eating and drinking Make diet or lifestyle changes recommended by your health care provider. These may include: ?Drinking fluids throughout the day and not only with meals. ?Cutting down on caffeine or alcohol. ?Eating a healthy and balanced diet to prevent constipation. This may include: ?Choosing foods that are high in fiber, such as beans, whole grains, and fresh fruits and vegetables. ?Limiting foods that are high in fat and processed sugars, such as fried and sweet foods. Lifestyle Lose weight if needed. Do not use any products that contain nicotine or tobacco. These include cigarettes, chewing tobacco, and vaping devices, such as e-cigarettes. If you need help quitting, ask your health care provider. General instructions Take jdzr-yxr-nodnlrd and prescription medicines only as told by your health care provider. If you were prescribed an antibiotic medicine, take it as told by your health care provider. Do not stop taking the antibiotic even if you start to feel better. Use any implants or pessary as told by your health care provider. If needed, wear pads to absorb urine leakage. Keep a log to track how much and when you drink, and when you need to urinate. This will help your health care provider monitor your condition. Keep all follow-up visits. This is important. Contact a health care provider if: You have a fever or chills. Your symptoms do not get better with treatment. Your pain and discomfort get worse. You have more frequent urges to urinate. Get help right away if: You are not able to control your bladder. Summary Overactive bladder refers to a condition in which a person has a sudden and frequent need to urinate. Several conditions may lead to an overactive bladder. Treatment for overactive bladder depends on the cause and severity of your condition. Making lifestyle changes, doing Kegel exercises, keeping a log, and taking medicines can help with this condition. This information is not intended to replace advice given to you by your health care provider. Make sure you discuss any questions you have with your health care provider. Document Revised: 08/06/2021 Document Reviewed: 08/06/2021 [employer] Patient Education 2022 [employer]. Follow Up Care 06/10/2022 11:38:49 With:JOE WHITTAKER, Juan M Mandel, URL Address: [facility] [address] [place] [address]- When: Unknown [facility] [place] [facility] Discharge instructions 06-10-2022 Note Date & Type Note Facility 06-10-2022 Hospital Discharg e instructions Patient Education 06/10/2022 11:37:33 Calorie Counting for Weight Loss Calorie Counting for Weight Loss Calories are units of energy. Your body needs a certain amount of calories from food to keep you going throughout the day. When you eat more calories than your body needs, your body stores the extra calories as fat. When you eat fewer calories than your body needs, your body paris fat to get the energy it needs. Calorie counting means keeping track of how many calories you eat and drink each day. Calorie counting can be helpful if you need to lose weight. If you make sure to eat fewer calories than your body needs, you should lose weight. Ask your health care provider what a healthy weight is for you. For calorie counting to work, you will need to eat the right number of calories in a day in order to lose a healthy amount of weight per week. A dietitian can help you determine how many calories you need in a day and will give you suggestions on how to reach your calorie goal. A healthy amount of weight to lose per week is usually 1 2 lb (0.5 0.9 kg). This usually means that your daily calorie intake should be reduced by 500 750 calories. Eating 1,200 1,500 calories per day can help most women lose weight. Eating 1,500 1,800 calories per day can help most men lose weight. What is my plan? My goal is to have calories per day. If I have this many calories per day, I should lose around pounds per week. What do I need to know about calorie counting? In order to meet your daily calorie goal, you will need to: Find out how many calories are in each food you would like to eat. Try to do this before you eat. Decide how much of the food you plan to eat. Write down what you ate and how many calories it had. Doing this is called keeping a food log. To successfully lose weight, it is important to balance calorie counting with a healthy lifestyle that includes regular activity. Aim for 150 minutes of moderate exercise (such as walking) or 75 minutes of vigorous exercise (such as running) each week. Where do I find calorie information? The number of calories in a food can be found on a Nutrition Facts label. If a food does not have a Nutrition Facts label, try to look up the calories online or ask your dietitian for help. Remember that calories are listed per serving. If you choose to have more than one serving of a food, you will have to multiply the calories per serving by the amount of servings you plan to eat. For example, the label on a package of bread might say that a serving size is 1 slice and that there are 90 calories in a serving. If you eat 1 slice, you will have eaten 90 calories. If you eat 2 slices, you will have eaten 180 calories. How do I keep a food log? Immediately after each meal, record the following information in your food log: What you ate. Don't forget to include toppings, sauces, and other extras on the food. How much you ate. This can be measured in cups, ounces, or number of items. How many calories each food and drink had. The total number of calories in the meal. Keep your food log near you, such as in a small notebook in your pocket, or use a mobile erik or website. Some programs will calculate calories for you and show you how many calories you have left for the day to meet your goal. What are some calorie counting tips? Use your calories on foods and drinks that will fill you up and not leave you hungry: ?Some examples of foods that fill you up are nuts and nut butters, vegetables, lean proteins, and high-fiber foods like whole grains. High-fiber foods are foods with more than 5 g fiber per serving. ?Drinks such as sodas, specialty coffee drinks, alcohol, and juices have a lot of calories, yet do not fill you up. Eat nutritious foods and avoid empty calories. Empty calories are calories you get from foods or beverages that do not have many vitamins or protein, such as candy, sweets, and soda. It is better to have a nutritious high-calorie food (such as an avocado) than a food with few nutrients (such as a bag of chips). Know how many calories are in the foods you eat most often. This will help you calculate calorie counts faster. Pay attention to calories in drinks. Low-calorie drinks include water and unsweetened drinks. Pay attention to nutrition labels for low fat or fat free foods. These foods sometimes have the same amount of calories or more calories than the full fat versions. They also often have added sugar, starch, or salt, to make up for flavor that was removed with the fat. Find a way of tracking calories that works for you. Get creative. Try different apps or programs if writing down calories does not work for you. What are some portion control tips? Know how many calories are in a serving. This will help you know how many servings of a certain food you can have. Use a measuring cup to measure serving sizes. You could also try weighing out portions on a kitchen scale. With time, you will be able to estimate serving sizes for some foods. Take some time to put servings of different foods on your favorite plates, bowls, and cups so you know what a serving looks like. Try not to eat straight from a bag or box. Doing this can lead to overeating. Put the amount you would like to eat in a cup or on a plate to make sure you are eating the right portion. Use smaller plates, glasses, and bowls to prevent overeating. Try not to multitask (for example, watch TV or use your computer) while eating. If it is time to eat, sit down at a table and enjoy your food. This will help you to know when you are full. It will also help you to be aware of what you are eating and how much you are eating. What are tips for following this plan? Reading food labels Check the calorie count compared to the serving size. The serving size may be smaller than what you are used to eating. Check the source of the calories. Make sure the food you are eating is high in vitamins and protein and low in saturated and trans fats. Shopping Read nutrition labels while you shop. This will help you make healthy decisions before you decide to purchase your food. Make a grocery list and stick to it. Cooking Try to cook your favorite foods in a healthier way. For example, try baking instead of frying. Use low-fat dairy products. Meal planning Use more fruits and vegetables. Half of your plate should be fruits and vegetables. Include lean proteins like poultry and fish. How do I count calories when eating out? Ask for smaller portion sizes. Consider sharing an entree and sides instead of getting your own entree. If you get your own entree, eat only half. Ask for a box at the beginning of your meal and put the rest of your entree in it so you are not tempted to eat it. If calories are listed on the menu, choose the lower calorie options. Choose dishes that include vegetables, fruits, whole grains, low-fat dairy products, and lean protein. Choose items that are boiled, broiled, grilled, or steamed. Stay away from items that are buttered, battered, fried, or served with cream sauce. Items labeled crispy are usually fried, unless stated otherwise. Choose water, low-fat milk, unsweetened iced tea, or other drinks without added sugar. If you want an alcoholic beverage, choose a lower calorie option such as a glass of wine or light beer. Ask for dressings, sauces, and syrups on the side. These are usually high in calories, so you should limit the amount you eat. If you want a salad, choose a garden salad and ask for grilled meats. Avoid extra toppings like duran, cheese, or fried items. Ask for the dressing on the side, or ask for olive oil and vinegar or lemon to use as dressing. Estimate how many servings of a food you are given. For example, a serving of cooked rice is cup or about the size of half a baseball. Knowing serving sizes will help you be aware of how much food you are eating at restaurants. The list below tells you how big or small some common portion sizes are based on everyday objects: ?1 oz 4 stacked dice. ?3 oz 1 deck of cards. ?1 tsp 1 . ?1 Tbsp a ping-pong ball. ?2 Tbsp 1 ping-pong ball. ? cup baseball. ?1 cup 1 baseball. Summary Calorie counting means keeping track of how many calories you eat and drink each day. If you eat fewer calories than your body needs, you should lose weight. A healthy amount of weight to lose per week is usually 1 2 lb (0.5 0.9 kg). This usually means reducing your daily calorie intake by 500 750 calories. The number of calories in a food can be found on a Nutrition Facts label. If a food does not have a Nutrition Facts label, try to look up the calories online or ask your dietitian for help. Use your calories on foods and drinks that will fill you up, and not on foods and drinks that will leave you hungry. Use smaller plates, glasses, and bowls to prevent overeating. This information is not intended to replace advice given to you by your health care provider. Make sure you discuss any questions you have with your health care provider. Document Released: 11/17/2006 Document Revised: 08/06/2019 Document Reviewed: 10/17/2017 [employer] Patient Education 2020 [employer]. 06/10/2022 11:37:25 Urinary Tract Infection, Adult, Iznn-iy-Lxfr Urinary Tract Infection, Adult A urinary tract infection (UTI) is an infection of any part of the urinary tract. The urinary tract includes: The kidneys. The ureters. The bladder. The urethra. These organs make, store, and get rid of pee (urine) in the body. What are the causes? This is caused by germs (bacteria) in your genital area. These germs grow and cause swelling (inflammation) of your urinary tract. What increases the risk? You are more likely to develop this condition if: You have a small, thin tube (catheter) to drain pee. You cannot control when you pee or poop (incontinence). You are female, and: ?You use these methods to prevent : ?A medicine that kills sperm (spermicide). ?A device that blocks sperm (diaphragm). ?You have low levels of a female hormone (estrogen). ?You are . You have genes that add to your risk. You are sexually active. You take antibiotic medicines. You have trouble peeing because of: ?A prostate that is bigger than normal, if you are male. ?A blockage in the part of your body that drains pee from the bladder (urethra). ?A kidney stone. ?A nerve condition that affects your bladder (neurogenic bladder). ?Not getting enough to drink. ?Not peeing often enough. You have other conditions, such as: ?Diabetes. ?A weak disease-fighting system (immune system). ?Sickle cell disease. ?Gout. ?Injury of the spine. What are the signs or symptoms? Symptoms of this condition include: Needing to pee right away (urgently). Peeing often. Peeing small amounts often. Pain or burning when peeing. Blood in the pee. Pee that smells bad or not like normal. Trouble peeing. Pee that is cloudy. Fluid coming from the vagina, if you are female. Pain in the belly or lower back. Other symptoms include: Throwing up (vomiting). No urge to eat. Feeling mixed up (confused). Being tired and grouchy (irritable). A fever. Watery poop (diarrhea). How is this treated? This condition may be treated with: Antibiotic medicine. Other medicines. Drinking enough water. Follow these instructions at home: Medicines Take aqae-qry-vjydpmf and prescription medicines only as told by your doctor. If you were prescribed an antibiotic medicine, take it as told by your doctor. Do not stop taking it even if you start to feel better. General instructions Make sure you: ?Pee until your bladder is empty. ?Do not hold pee for a long time. ?Empty your bladder after sex. ?Wipe from front to back after pooping if you are a female. Use each tissue one time when you wipe. Drink enough fluid to keep your pee pale yellow. Keep all follow-up visits as told by your doctor. This is important. Contact a doctor if: You do not get better after 1 2 days. Your symptoms go away and then come back. Get help right away if: You have very bad back pain. You have very bad pain in your lower belly. You have a fever. You are sick to your stomach (nauseous). You are throwing up. Summary A urinary tract infection (UTI) is an infection of any part of the urinary tract. This condition is caused by germs in your genital area. There are many risk factors for a UTI. These include having a small, thin tube to drain pee and not being able to control when you pee or poop. Treatment includes antibiotic medicines for germs. Drink enough fluid to keep your pee pale yellow. This information is not intended to replace advice given to you by your health care provider. Make sure you discuss any questions you have with your health care provider. Document Released: 05/05/2009 Document Revised: 11/04/2019 Document Reviewed: 05/27/2019 [employer] Patient Education 2020 [employer]. Follow Up Care 12/10/2021 10:50:41 With:JOE WHITTAKER, Juan M Mandel, URL Address: [facility] [address] , [place] [address]- [phone] When:Within 1 Year(s) Comments:1 year fu [facility] Evaluation + Plan note Note Date & Type Note Facility Evaluation + Plan note Future Appointments Appointment Date:06/13/2023 09:30:00 AM Scheduled Provider:Juan M TINAJERO MD Location:[facility] Appointment Type:URO Office Visit [facility] Evaluation + Plan note Note Date & Type Note Facility Evaluation + Plan note Future Appointments Appointment Date:06/14/2024 08:45:00 AM Scheduled Provider:Juan M TINAJERO MD Location:[facility] Appointment Type:URO Office Visit [facility] Evaluation note Note Date & Type Note Facility Evaluation note Diagnosis Dermatitis- Primary Contact dermatitis and other eczema, due to unspecified cause Senile dementia (CMS/[facility]) Senile dementia, uncomplicated documented in this encounter [facility] Hospital course Narrative Note Date & Type Note Facility Hospital course Narrative No data available for this section [facility] Progress note Note Date & Type Note Facility Progress note No data available for this section [facility] Summary Purpose Family History No Family History Records FoundNo Family History Records FoundNo Family History Records FoundNo Family History Records Found Advance Directives No Advanced Directives Records FoundNo Advanced Directives Records FoundNo Advanced Directives Records FoundNo Advanced Directives Records Found Additional Source Comments INFORMATION SOURCE (unrecogn ized section and content) DATE CREATED AUTHOR 01/19/2019 [facility] DATE CREATED AUTHOR AUTHOR'S ORGANIZ ATION 07/31/2022 [facility] DATE CREATED AUTHOR AUTHOR'S ORGANIZ ATION 06/14/2023 [facility] DATE CREATED AUTHOR AUTHOR'S ORGANIZ ATION 01/09/2024 [facility] EPIC Care Team (unrecognized sect ion and content) Shirt Folder Relationship Specialty Start Date End Date Damon Ramos MD [address] [place] [address] PCP - General Family Medicine 01/08/24 Reason for Visit (unrecogniz ed section and content) Reason Comments Rash Rash on breast FOR RECORDS PERTAINING TO PATIENTS WHO ARE OR HAVE BEEN ENROLLED IN A CHEMICAL DEPENDENCY/SUBSTANCEABUSE PROGRAM, SOME INFORMATION MAY BE OMITTED. This clinical summary was aggregated from multiple sources. Caution should be exercised in using it in the provision of clinical care. This summary normalizes information from multiple sources, and as a consequence, information in this document may materially change the coding, format and clinical context of patient data. In addition, data may be omitted in some cases. CLINICAL DECISIONS SHOULD BE BASED ON THE PRIMARY CLINICAL RECORDS. [facility] [employer] [facility]. provides no warranty or guarantee of the accuracy or completeness of information in this document.
[2024-01-13 11:44] LABS: Basophils Percent Auto 0.5 % (0.2-2.0); Eosinophils Absolute Auto 0.1 10^3/uL (0.0-0.7); Eosinophils Percent Auto 1.8 % (0.9-7.0); Hematocrit 40.2 % (36.0-48.0); Hemoglobin 13.3 g/dL (12.0-16.0); Immature Granulocytes Abs Auto 0.02 10^3/uL (0.00-0.03); Immature Granulocytes Pct Auto 0.3 % (0.0-0.5); Lymphocytes Absolute Auto 1.4 10^3/uL (1.2-3.8); Lymphocytes Percent Auto 21.5 % (20.5-60.0); Mean Corpuscular HGB Conc 33.1 g/dL (29.9-35.2); Mean Corpuscular Hemoglobin 32.8 pg (26.7-34.0); Mean Platelet Volume 10.1 fL (9.5-13.5); Monocytes Absolute Auto 0.8 10^3/uL (0.3-0.8); Monocytes Percent Auto 11.5 % (1.7-12.0); Neutrophils Absolute Auto 4.2 10^3/uL (1.4-6.5); Neutrophils Percent Auto 64.4 % (43.0-75.0); Platelet Count 295 10^3/uL (150-450); Red Blood Count 4.06 10^6/uL (4.20-5.40); Red Cell Distribution Width 13.2 % (11.0-15.0); White Blood Count 6.6 10^3/uL (4.0-11.0)
[2024-01-13 12:41] LABS: Alanine Aminotransferase 22 U/L (14-59); Albumin Globulin Ratio 0.8; Albumin Level 3.3 g/dL (3.4-5.0); Alkaline Phosphatase 59 U/L (46-116); Anion Gap 11.2; Aspartate Amino Transferase 20 U/L (15-37); BUN Creatinine Ratio 20.5; Bilirubin Direct 0.1 mg/dL (0.0-0.2); Bilirubin Total 0.4 mg/dL (0.2-1.0); Calcium 9.2 mg/dL (8.5-10.1); Carbon Dioxide 30.1 mmol/L (21.0-32.0); Chloride 102 mmol/L (98-107); Chol HDL Ratio 2.7; Cholesterol 184 mg/dL (<=200); Estimated GFR (African America 54 (>=60); Estimated GFR (Non-African Ame 45 (>=60); Globulin 4.1 g/dL; Glucose 100 mg/dL (74-106); HDL Cholesterol 69 mg/dL (40-60); Potassium 3.3 mmol/L (3.5-5.1); Sodium 140 mmol/L (136-145); Total Protein 7.4 g/dL (6.4-8.2); Triglycerides 107 mg/dL (<=150); VLDL CHOLESTEROL 21.4 mg/dL
== END 2024-01-13 11:07 | disposition home or self-care (01) ==
LOC: LAB 11:06
PROVIDERS: PCP Family Medicine; Visit Provider Family Medicine
DX: E78.5 Hyperlipidemia, unspecified (principal); Z79.899 Other long term (current) drug therapy; N18.31 Chronic kidney disease, stage 3a; I12.9 Hypertensive chronic kidney disease with stage 1 through stage 4 chronic kidney disease, or unspecified chronic kidney disease
CPT/HCPCS: 36415; 80048; 80061; 80076; 82306; 85025

== ENCOUNTER 2024-03-26 11:16 | Outpatient (OUT) | payer MEDICARE, OTHER, SELFPAY ==
[2024-03-26 11:50] LABS: Basophils Percent Auto 0.5 % (0.2-2.0); Eosinophils Absolute Auto 0.1 10^3/uL (0.0-0.7); Eosinophils Percent Auto 1.5 % (0.9-7.0); Hematocrit 42.3 % (36.0-48.0); Hemoglobin 13.9 g/dL (12.0-16.0); Immature Granulocytes Abs Auto 0.01 10^3/uL (0.00-0.03); Immature Granulocytes Pct Auto 0.2 % (0.0-0.5); Lymphocytes Absolute Auto 1.1 10^3/uL (1.2-3.8); Lymphocytes Percent Auto 17.3 % (20.5-60.0); Mean Corpuscular HGB Conc 32.9 g/dL (29.9-35.2); Mean Corpuscular Hemoglobin 32.7 pg (26.7-34.0); Mean Corpuscular Volume 99.5 fL (81.0-99.0); Mean Platelet Volume 10.1 fL (9.5-13.5); Monocytes Absolute Auto 0.6 10^3/uL (0.3-0.8); Monocytes Percent Auto 9.3 % (1.7-12.0); Neutrophils Absolute Auto 4.7 10^3/uL (1.4-6.5); Neutrophils Percent Auto 71.2 % (43.0-75.0); Platelet Count 280 10^3/uL (150-450); Red Blood Count 4.25 10^6/uL (4.20-5.40); Red Cell Distribution Width 12.6 % (11.0-15.0); White Blood Count 6.6 10^3/uL (4.0-11.0)
[2024-03-26 11:52] LABS: Bilirubin Urine NEGATIVE (NEGATIVE); Blood Urine TRACE-I (NEGATIVE); Clarity Urine CLEAR (CLEAR); Color Urine YELLOW (YELLOW); Glucose Urine UA NEGATIVE (NEGATIVE); Ketones Urine NEGATIVE (NEGATIVE); Leukocyte Esterase Urine LARGE (NEGATIVE); Nitrite Urine POSITIVE (NEGATIVE); Protein Urine TRACE mg/dL (NEG/TRACE); pH Urine 7.5 (5.0-9.0)
[2024-03-26 11:59] LABS: Ammonia <10 umol/L (11-32)
[2024-03-26 12:04] LABS: Alanine Aminotransferase 28 U/L (14-59); Albumin Globulin Ratio 0.9; Albumin Level 3.4 g/dL (3.4-5.0); Alkaline Phosphatase 66 U/L (46-116); Anion Gap 9.8; Aspartate Amino Transferase 25 U/L (15-37); BUN Creatinine Ratio 13.9; Bilirubin Direct 0.1 mg/dL (0.0-0.2); Bilirubin Total 0.4 mg/dL (0.2-1.0); Calcium 9.6 mg/dL (8.5-10.1); Carbon Dioxide 32.8 mmol/L (21.0-32.0); Chloride 102 mmol/L (98-107); Estimated GFR (African America 52 (>=60); Estimated GFR (Non-African Ame 43 (>=60); Glucose 112 mg/dL (74-106); Potassium 3.6 mmol/L (3.5-5.1); Sodium 141 mmol/L (136-145); Total Protein 7.4 g/dL (6.4-8.2)
[2024-03-26 12:16] LABS: Urine Microscopic Indicated YES
[2024-03-26 12:18] LABS: Bacteria Urine MODERATE #/HPF (NONE SEEN); Cast Seen? NONE SEEN #/LPF (NONE SEEN); Crystals Seen? None Seen #/HPF (None Seen); Mucus Urine NONE SEEN (NONE SEEN); RBC Urine 0-2 #/HPF (0-2); Squamous Epithelial Cell Urine MANY #/LPF (NONE/RARE); Transitional Epi Cells Urine FEW #/LPF (NONE SEEN)
== END 2024-03-26 11:17 | disposition home or self-care (01) ==
LOC: LAB 11:16
PROVIDERS: PCP Family Medicine; Visit Provider Family Medicine
DX: F03.90 Unspecified dementia, unspecified severity, without behavioral disturbance, psychotic disturbance, mood disturbance, and anxiety (principal); R41.0 Disorientation, unspecified; G93.41 Metabolic encephalopathy; Z79.899 Other long term (current) drug therapy; E53.8 Deficiency of other specified B group vitamins
CPT/HCPCS: 36415; 80048; 80076; 81001; 82140; 82607; 82746; 85025; 87086; 87150; 87186

== ENCOUNTER 2024-03-30 10:39 | Outpatient (OUT) | payer MEDICARE, OTHER, SELFPAY ==
--- NOTE | 2024-03-30 10:46 | MR_ITS ---
The [address] [address] Patient Name: LUIS CARLOS SERRANO MRN: [id number] date: 1945 Sex: F Assigned Patient Location: MRI Current Patient Location: MRI Accession/Order Number: [id number] Exam Date: 03/30/2024 10:51 Report Date: 03/30/2024 13:16 At the request of: PHUONG RAMOS Procedure: MR head/brain wo con EXAM: MR head/brain wo con HISTORY: Senile Dementia F03.90 COMPARISON: None. TECHNIQUE: MRI of the brain was performed without contrast. FINDINGS: There is no restricted diffusion to suggest acute infarct. There is no midline shift, mass effect, or abnormal extraaxial fluid collections. The cortical sulci and ventricular system are within normal limits. Multiple nonspecific scattered foci of T2/FLAIR signal abnormality are identified in the subcortical and periventricular white matter. The major intracranial flow voids are visualized. The cerebellar tonsils are normal in position. The orbits are unremarkable. The paranasal sinuses show no air-fluid level. The mastoid air cells are clear. The calvarium and extracranial soft tissues are unremarkable. MR/MR head/brain wo con IMPRESSION: No acute intracranial abnormality. Multiple nonspecific T2 signal abnormality throughout the supratentorial white matter, statistically most likely consistent with moderate microvascular ischemic changes. Electronically authenticated by: KIA LEES Date: 03/30/2024 13:16
--- OUTSIDE RECORDS SUMMARY | 2024-03-30 10:56 | XMS_ITS | CCD ---
Author Organization [facility] Care Team Providers Care Assistant Professor Of Archaeology Name Role Phone Beata Ngo Attending Unavailable DAMON RAMOS Primary Care Physician Luisito Sierra Unavailable Unavailable RACHEL, DR DAMON Dove Admitting Unavailable RACHEL, DR DAMON Dove Primary Care Unavailable RACHEL, DR DAMON Dove Attending Unavailable RAVEN, DR CARLIN Mandel Consulting Unavailable RACHEL, DR DAMON Dove Consulting Unavailable Juan M TINAJERO Attending Unavailable Juan M TINAJERO Attending Unavailable Damon Ramos MD Primary Care Provider DAMON RAMOS Attending Unavailable RACHEL, DAMON Attending Unavailable DAMON RAMOS Attending Unavailable Allergies Allergy Classification Reported Allergen(s) Allergy Type Date of Onset Reaction(s) Facility (6 sources) Sulfamethoxazole / Trimethoprim; Translations: [sulfamethoxazole-tr imethoprim] Drug Allergy 01-28-20 17 Unknown (qualifier value), Itching [facility] (3 sources) Ciprofloxacin Drug Allergy 11-29-20 20 Other, Dizziness [facility] (3 sources) Sulfamethoxazole Allergy to substance 07-08-20 Rash [facility] (3 sources) Trimethoprim Drug Allergy 07-08-20 Rash [facility] Medications Current Medications Medication Drug Class(es) Dates Sig (Normalized) Sig (Original) Fiorinal (2 sources) Platelet Aggregation Inhibitor, Barbiturate, Nonsteroidal Anti-inflammatory Drug, Central Nervous System Stimulant, Methylxanthine Start: 08-18-2019 Fiorinal Oral, q6hr Start Date: 08/18/19 Status: Ordered atorvastatin 20 mg oral tablet (5 sources) HMG-CoA Reductase Inhibitor Start: 08-18-2019 atorvastatin (Lipitor) 20 MG tablet donepezil hydrochloride 5 mg oral tablet (3 sources) Start: 01-08-2024 take 1 tablet by [...] Refill(s) 5, Apply one gram 3x/ week., Pharmacy, 163, cm, 06/10/22 11:26:00 EDT, Height/Length Dosing, 74, kg, 06/10/22 11:26:00 EDT, Weight Dosing Start Date: 04/01/23 Status: Ordered Start: 11-19-2021 Estrace 0.1 mg /g Cream 1 gram, Vaginal, MonWedFri, 42.5 gram, Refill(s) 5, Apply one gram 3x/ week., Pharmacy, 163, cm, 11/19/21 10:42:00 EST, Height/Length Dosing, 74, kg, 11/19/21 10:42:00 EST, Weight Dosing Start Date: 11/19/21 Status: Ordered FLUoxetine 10 mg oral capsule (5 sources) Serotonin Reuptake Inhibitor Start: 08-18-2019 FLUoxetine (PROzac) 10 MG capsule hydroCHLOROthiazide 25 mg / triamterene 37.5 mg oral tablet (5 sources) Potassium-sparing Diuretic, Thiazide Diuretic Start: 04-04-2023 triamterene-hydroch lorothiazide (Maxzide-25) 37.5-25 MG tablet Start: 08-18-2019 take 1 tablet by mouth once da bria Maxzide 1 tab(s), Oral, Daily Start Date: 08/18/19 Status: Ordered nortriptyline 10 mg oral capsule (5 sources) Tricyclic Antidepressant Start: 06-23-2023 take 1 capsule by mouth at bedtime nortriptyline (Pamelor) 10 MG capsule Take 1 capsule by mouth at bedtime 0 06/23/2023 Active Start: 08-18-2019 take 1 capsule by mo ut three times daily Pamelor 10 mg Cap 10 mg = 1 cap(s), Oral, TID Start Date: 08/18/19 Status: Ordered triamcinolone acetonide 5 mg/ml topical cream (3 sources) Corticosteroid Start: 01-08-2024 triamcinolone (Kenalog) 0.5 % cream Indications: Dermatitis Apply topically 3 (three) times a day 60 g 1 01/08/2024 Active Start: 01-08-2024 triamcinolone (Kenalog) 0.5 % cream Indications: Dermatitis Apply topically 3 (three) times a day 60 g 1 01/08/2024 Active Problems Problem Classification Problem Date Documented Date Episodic/Chronic Allergic reactions (5 sources) Inflammatory dermatosis; Translations: [Dermatitis, unspecified] Onset: 01-08-2024 01-08-2024 Episodic Anxiety disorders (5 sources) Anxiety; Translations: [Generalized anxiety disorder] Onset: 11-04-2023 08-11-2019 Chronic Chronic kidney disease (3 sources) Chronic kidney disease stage 3A ; Translations: [Chronic kidney disease, stage 3a (HCC)] Onset: 11-04-2023 11-04-2023 Chronic Delirium, dementia, and amnestic and other cognitive disorders (5 sources) Senile dementia; Translations: [Unspecified dementia without behavioral disturbance] Onset: 11-04-2023 01-08-2024 Chronic Disorders of lipid metabolism (6 sources) Hypercholesterolemia; Translations: [Hyperlipidemia, unspecified] Onset: 07-30-2022 08-11-2019 Chronic Esophageal disorders (3 sources) Gastroesophageal reflux disease; Translations: [Gastro-esophageal reflux disease without esophagitis] Onset: 11-04-2023 11-04-2023 Chronic Essential hypertension (9 sources) Hypertensive disorder; Translations: [Essential (primary) hypertension] Onset: 07-24-2022 08-11-2019 Chronic Genitourinary symptoms and ill-defined conditions (8 sources) Stress incontinence (female) (male); Translations: [Genuine stress incontinence] Onset: 06-10-2022 Chronic Genitourinary symptoms and ill-defined conditions (8 sources) Sensation as if bladder still full; Translations: [Feeling of incomplete bladder emptying] Onset: 06-10-2022 Episodic Headache; including migraine (5 sources) Migraine; Translations: [Migraine without aura, not refractory ] Onset: 11-04-2023 08-11-2019 Chronic Mood disorders (3 sources) Recurrent major depressive episodes, moderate ; Translations: [Major depressive disorder, recurrent, moderate] Onset: 11-04-2023 11-04-2023 Chronic Other aftercare (1 source) Other terminal manager (current) drug therapy; Translations: [OTH HALFWAY CURRENT DRUG THERAPY] Onset: 07-30-2022 Episodic Other aftercare (3 sources) Patient encounter status; Translations: [Other terminal manager (current) drug therapy] Onset: 11-04-2023 11-04-2023 Episodic Other diseases of bladder and urethra (1 source) Male urethral stricture; Translations: [Unspecified urethral stricture, male, unspecified site] Onset: 06-10-2022 Episodic Other screening for suspected conditions (not mental disorders or infectious disease) (1 source) Encounter for screening mammogram for malignant neoplasm of breast; Translations: [ENC SCR MAMMO MALIG NEOPLASM BREAST] Onset: 07-30-2022 Episodic Residual codes; unclassified (3 sources) Insomnia; Translations: [Insomnia, unspecified] Onset: 11-04-2023 [...] Test Name Value Interpretation Reference Range Facility ALL CBC WITH AUTO DIFFon BASOPHILS ABSOLUTE AUTO 0.0 [facility] Basophils/100 WBC (Bld) 0.5 % 0.2 - 2.0 % [facility] Eosinophils/100 WBC (Bld) 1.8 % 0.9 - 7.0 % [facility] Erythrocyte distribution width (RBC) [Ratio] 13.2 % 11.0 - 15.0 % [facility] Hematocrit (Bld) [Volume fraction] 40.2 % 36.0 - 48.0 % [facility] Hemoglobin (Bld) [Mass/Vol] 13.3 g/dL 12.0 - 16.0 g/dL [facility] IMMATURE GRANULOCYTES ABS AUTO 0.02 [facility] Immature granulocytes/100 WBC (Bld) 0.3 % 0.0 - 0.5 % [facility] Interpretation and review of laboratory results Abnormal [facility] LYMPHOCYTES ABSOLUTE AUTO 1.4 [facility] Lymphocytes/100 WBC (Bld) 21.5 % 20.5 - 60.0 % [facility] MCH (RBC) [Entitic mass] 32.8 pg 26.7 - 34.0 pg [facility] MCHC (RBC) [Mass/Vol] 33.1 g/dL 29.9 - 35.2 g/dL [facility] MCV (RBC) [Entitic vol] 99.0 fL 81.0 - 99.0 fL [facility] MONOCYTES ABSOLUTE AUTO 0.8 [facility] Monocytes/100 WBC (Bld) 11.5 % 1.7 - 12.0 % [facility] NEUTROPHILS ABSOLUTE AUTO 4.2 [facility] Neutrophils/100 WBC (Bld) 64.4 % 43.0 - 75.0 % [facility] Platelet mean volume (Bld) [Entitic vol] 10.1 fL 9.5 - 13.5 fL [facility]H EO # 0.1 [facility] PLT [address] [facility] RBC 4.06 Low [facility] WBC 6.6 [facility] Ambulatory Visit Summaryon 0 06-13-2023 Ambulatory Visit Summary CAPRI SERRANO :1945 Visit Date:06/13/2023 Ambulatory Visit Instructions Your Diagnosis Chronic cystitis Feeling of incomplete bladder emptying Urge incontinence Postinfective urethral stricture in female Tests Performed Urnls Dip Stick Auto w/o Microscopy POC 59529 Your Care Team Attending Physician - JOE WHITTAKER, Juan M Mandel Primary Care Physician - DAMON RAMOS MD This Is Your Medications List estradiol topical (Estrace 0.1 mg/g Cream) Contact prescribing physician if questions or concerns ASA/butalbital/caffein e (Fiorinal) atorvastatin (atorvastatin 20 mg Tab) fluoxetine (FLUoxetine 10 mg Cap) hydrochlorothiazide-tr iamterene (Maxzide) nortriptyline (Pamelor 10 mg Cap) Procedures [...] Juan M Mandel Where: [facility] Patient Educationon 06-13-20 23 Patient Education Overactive Bladder, Adult Overactive bladder [...] health care provider. General instructions ? Take cygq-cxl-molyxlo and prescription medicines only as told by [...] all f (more content not included)... Normal [facility] Urology Office/Clinic Noteon 06-13-2023 Urology Office/Clinic [...] [facility] [address], [place] [address]- Additional Instructions: 1 year Patient Education Overactive Bladder, Adult I, Ayn Rosas, personally scribed for Dr. Tinajero on [...] Dipstick: Negative (more content not included)... Normal [facility] Comment on above: Result Comment: Elec tronically Signed By: JOE WHITTAKER, Juan M Mandel\.br\Date and Time Signed: 06/13/23 10:28 EDT\.br\Electronically Co-Signed By: Any Rosas.br\Date and Time Co-Signed: 06/13/23 10:26 EDT CBC AUTO DIFFon 08-24-2022 BASO # 0.0 103/ul Normal 0.0-0.1 [facility] Comment on above: Performed By: #### C BC #### [facility] [address] [place] [address] Dr. Finn Wolff Basophils/100 WBC (Bld) 0.6 % Normal 0.2-2.0 [facility] Comment on above: Performed By: #### C BC #### [facility] [address] [place] [address] Dr. Finn Wolff EO # 0.1 103/ul Normal 0.0-0.7 [facility] Comment on above: Performed By: #### C BC #### [facility] [address] [place] [address] Dr. Finn Wolff Eosinophils/100 WBC (Bld) 1.5 % Normal 0.9-7.0 [facility] Comment on above: Performed By: #### C BC #### [facility] [address] [place] [address] Dr. Finn Wolff Erythrocyte distribution width (RBC) [Ratio] 13.1 % Normal 11.0-15.0 [facility] Comment on above: Performed By: #### C BC #### [facility] [address] [place] [address] Dr. Finn Wolff Hematocrit (Bld) [Volume fraction] 42.0 % Normal 36.0-48.0 [facility] Comment on above: Performed By: #### C BC #### [facility] [address] [place] [address] Dr. Finn Wolff Hemoglobin (Bld) [Mass/Vol] 14.0 g/dL Normal 12.0-16.0 [facility] Comment on above: Performed By: #### C BC #### [facility] [address] [place] [address] Dr. Finn Wolff IG # 0.01 10e3/ul Normal 0.00-0.03 [facility] Comment on above: Performed By: #### C BC #### [facility] [address] [place] [address] Dr. Finn Wolff IG % 0.2 % Normal 0.0-0.5 [facility] Comment on above: Performed By: #### C BC #### [facility] [address] [place] [address] Dr. Finn Wolff LYMPH # 1.1 103/ul Critically low 1.2-3.8 [facility] Comment on above: Performed By: #### C BC #### [facility] [address] [place] [address] Dr. Finn Wolff Lymphocytes/100 WBC (Bld) 21.1 % Normal 20.5-60.0 [facility] Comment on above: Performed By: #### C BC #### [facility] [address] [place] [address] Dr. Finn Wolff MANUAL DIFF REQ NO Normal [facility] Comment on above: Performed By: #### C BC #### [facility] [address] [place] [address] Dr. Finn Wolff MCH (RBC) [Entitic mass] 33.4 pg Normal 26.7-34.0 [facility] Comment on above: Performed By: #### C BC #### [facility] [address] [place] [address] Dr. Finn Wolff MCHC (RBC) [Mass/Vol] 33.3 g/dL Normal 29.9-35.2 [facility] Comment on above: Performed By: #### C BC #### [facility] [address] [place] [address] Dr. Finn Wolff MCV (RBC) [Entitic vol] 100.2 fL Critically high 81.0-99.0 [facility] Comment on above: Performed By: #### C BC #### [facility] [address] [place] [address] Dr. Finn Wolff MONO # 0.7 103/ul Normal 0.3-0.8 [facility] Comment on above: Performed By: #### C BC #### [facility] [address] [place] [address] Dr. Finn Wolff Monocytes/100 WBC (Bld) 12.5 % Critically high 1.7-12.0 [facility] Comment on above: Performed By: #### C BC #### [facility] [address] [place] [address] Dr. Finn Wolff NEUT # 3.4 103/ul Normal 1.4-6.5 [facility] Comment on above: Performed By: #### C BC #### [facility] [address] [place] [address] Dr. Finn Wolff Neutrophils/100 WBC (Bld) 64.1 % Normal 43.0-75.0 [facility] Comment on above: Performed By: #### C BC #### [facility] [address] [place] [address] Dr. Finn Wolff Platelet mean volume (Bld) [Entitic vol] 10.7 fL Normal 9.5-13.5 [facility] Comment on above: Performed By: #### C BC #### [facility] [address] [place] [address] Dr. Finn Wolff PLT 262 103/ul Normal 150-450 [facility] Comment on above: Performed By: #### C BC #### [facility] [address] [place] [address] Dr. Finn Wolff RBC 4.19 106/ul Critically low 4.20-5.40 [facility] Comment on above: Performed By: #### C BC #### [facility] [address] [place] [address] Dr. Finn Wolff WBC 5.4 103/ul Normal 4.0-11.0 [facility] Comment on above: Performed By: #### C BC #### [facility] [address] [place] [address] Dr. Finn Wolff LIPID PROFILEon 07-24-2022 CHOL-HDL RATIO NORM SEE BELOW Normal [facility] Comment on above: Result Comment: 3.3 - 4.4 LOW RISK 4.4 - 7.1 AVERAGE RISK 7.1 - 11.0 MODERATE RISK >11.0 HIGH RISK Performed By: #### A LT, AST, LIPID, BMP #### [facility] [address] [address] [address] Finn Wolff Cholesterol [Mass/Vol] 141 mg/dL Normal <=200 [facility] Comment on above: Performed By: #### A LT, AST, LIPID, BMP #### [facility] [address] [address] [address] Finn Wolff Cholesterol in HDL [Mass/Vol] 68 mg/dL Critically high 40-60 [facility] Comment on above: Performed By: #### A LT, AST, LIPID, BMP #### [facility] [address] [address] [address] Finn Wolff Cholesterol in LDL [Mass/Vol] 52.6 mg/dL Normal [facility] Comment on above: Performed By: #### A LT, AST, LIPID, BMP #### [facility] [address] [place] [address] Dr. Finn Wolff Cholesterol.total/C holesterol in HDL [Mass ratio] 2.1 {ratio} Normal [facility] Comment on above: Performed By: #### A LT, AST, LIPID, BMP #### [facility] [address] [address] [address] Finn Wolff HDL NORMAL > or = 60 mg/dl - LO W CARDIOVASCULAR RISK <40 mg/dl - HIGH CARDIOVASCULAR RISK Normal [facility] Comment on above: Performed By: #### A LT, AST, LIPID, BMP #### [facility] [address] [address] [address] Finn Wolff LDL CALC NORMAL SEE BELOW Normal [facility] Comment on above: Result Comment: <100 mg/dl OPTIMAL 100 - 129 mg/dl NEAR OR ABOVE OPTIMAL 130 - 159 mg/dl BORDERLINE HIGH 160 - 189 mg/dl HIGH >190 mg/dl VERY HIGH Performed By: #### A LT, AST, LIPID, BMP #### [facility] [address] [address] [address] Finn Wolff Triglyceride [Mass/Vol] 102 mg/dL Normal <=150 [facility] Comment on above: Performed By: #### A LT, AST, LIPID, BMP #### [facility] [address] [address] [address] Finn Wolff VLDL CALC 20.4 mg/dL Normal [facility] Comment on above: Performed By: #### A LT, AST, LIPID, BMP #### [facility] [address] [place], [place] [address] Dr. Finn Wolff MG MAMM SCREEN 3D MAU CADon 07-24-2022 MG MAMM SCREEN 3D MAU CAD Patient: CAPRI SERRANO Exam Date: 07/24/2022 : 1945 Gender:F Ordering : DR DAMON RAMOS . Admission #: [id number] Family : Order #: [id number] CLICK HERE TO VIEW EXAM RADIOLOGY REPORT [...] Treatments None Family Cancers None LOCATION: [facility] BREAST COMPOSITION: Heterogeneously dense,which may obscure [...] M.D. on 07/26/2022 at 12:49 Normal [facility] PROF CHEM 8 (BAS METB)on Anion gap [Moles/Vol] 9.6 mmol/L Normal [facility] Comment on above: Performed By: #### A LT, AST, LIPID, BMP #### [facility] [address] [place], [place] [address] Dr. Finn Wolff Calcium [Mass/Vol] 8.9 mg/dL Normal 8.5-10.1 [facility] [place] Comment on above: Performed By: #### A LT, AST, LIPID, BMP #### [facility] [address] [address] [address] Finn Wolff Chloride [Moles/Vol] 100 mmol/L Normal 98-107 [facility] Comment on above: Performed By: #### A LT, AST, LIPID, BMP #### [facility] [address] [place] [address] Dr. Finn Wolff CO2 [Moles/Vol] 31.7 mmol/L Normal 21.0-32.[address] [facility] Comment on above: Performed By: #### A LT, AST, LIPID, BMP #### [facility] [address] [place] [address] Dr. Finn Wolff Creatinine [Mass/Vol] 1.15 mg/dL Critically high 0.55-1.02 [facility] Comment on above: Performed By: #### A LT, AST, LIPID, BMP #### [facility] [address] [place] [address] Dr. Finn Wolff EGFR-AF BERMUDIAN 56 mL/min/1.73m2 Critically low >=60 [facility] Comment on above: Performed By: #### A LT, AST, LIPID, BMP #### [facility] [address] [place] [address] Dr. Finn Wolff EGFR-NON AF BERMUDIAN 46 mL/min/1.73m2 Critically low >=60 [facility] Comment on above: Performed By: #### A LT, AST, LIPID, BMP #### [facility] [address] [place] [address] Dr. Finn Wolff Glucose [Mass/Vol] 88 mg/dL Normal 74-106 [facility] [place] Comment on above: Performed By: #### A LT, AST, LIPID, BMP #### [facility] [address] [place] [address] Dr. Finn Wolff Potassium [Moles/Vol] 3.3 mmol/L Critically low 3.5-5.1 [facility] Comment on above: Performed By: #### A LT, AST, LIPID, BMP #### [facility] [address] [place] [address] Dr. Finn Wolff Sodium [Moles/Vol] 138 mmol/L Normal 136-145 [facility] Comment on above: Performed By: #### A LT, AST, LIPID, BMP #### [facility] [address] [place] [address] Dr. Finn Wolff Urea nitrogen [Mass/Vol] 19.0 mg/dL Critically high 7.0-18.0 [facility] Comment on above: Performed By: #### A LT, AST, LIPID, BMP #### [facility] [address] [place] [address] Dr. Finn Wolff Urea nitrogen/Creatinine [Mass ratio] 16.5 mg/mg Normal [facility] Comment on above: Performed By: #### A LT, AST, LIPID, BMP #### [facility] [address] [place] [address] Dr. Finn Kurtz 07-24-2022 AST [Catalytic activity/Vol] 23 U/L Normal 15-37 [facility] Comment on above: Performed By: #### A LT, AST, LIPID, BMP #### [facility] [address] [place] [address] Dr[facility] ALT [Catalytic activity/Vol] 21 U/L Normal 14-59 [facility] Comment on above: Performed By: #### A LT, AST, LIPID, BMP #### [facility] [address] [place] [address] Dr. Finn Wolff Urine Cultureon 2019 Bacteria identified Cx Nom (U) Reason for Exam Dysuria Urine ORGANISM: Escherichia coli (O:ESCCOL) Dagmar Count 50,000 Aerobic DANAE Charge (Neg) --- SUSCEPTIBILITY -- ORGANISM: O:ESCCOL ANTIBIOTIC INTERPRETATION DANAE Amikacin S <16 Amoxacillin/K Clavulanate S <8/4 Ampicillin S <8 Ampicillin/Sulbactam S <8/4 Aztreonam S <8 Cefazolin S <8 Cefepime S <8 Cefotetan S <16 Ceftazidime S <1 Ceftriaxone S <8 Cefuroxime S <4 Ciprofloxacin S <1 Ertapenem S <2 Gentamicin S <4 Levofloxacin S <2 Meropenem S <4 Nitrofurantoin S <32 Piperacillin/Tazobacta m S <16 Tetracycline S <4 Tobramycin S <4 Trimethoprim/Sulfameth oxazole S <2/38 S = SUSCEPTIBLE I = [...] RESISTANT TO ALL B-LACTAM DRUGS. PERFORMED BY: [place] [address] PATHOLOGIST GUEST SERVICES COORDINATOR SCARLETT WHIPPLE M.D. [facility] Comment on above: Performed By: #### C UU #### [address] Vital Signs Date Time Vital Sign Value Performing Clinician Facility 01-08-2024 10:52-0500 Body height 167.6 cm Damon Ramos MD Work Phone: [facility] 01-08-2024 10:52-0500 Body mass index (BMI) [Ratio] 23.89 kg/m2 Damon Ramos MD Work Phone: [facility] 01-08-2024 10:52-0500 Body temperature 97.11 [degF] Damon Ramos MD Work Phone: [facility] 01-08-2024 10:52-0500 Body weight 67.13 kg Damon Ramos MD Work Phone: [facility] 01-08-2024 10:52-0500 Diastolic blood pressure 80 mm[Hg] Damon Ramos MD Work Phone: [facility] 01-08-2024 10:52-0500 Heart rate 101 /min Damon Ramos MD Work Phone: [facility] 01-08-2024 10:52-0500 SaO2% (BldA) [Mass fraction] 97 % Damon Ramos MD Work Phone: [facility] 01-08-2024 10:52-0500 Systolic blood pressure 140 mm[Hg] Damon Ramos MD Work Phone: [facility] 06-13-2023 09:42-0400 Blood Pressure Location Juan M JOE [facility] 06-13-2023 09:42-0400 Diastolic blood pressure 76 mm[Hg] Juan M TINAJERO [facility] 06-13-2023 09:42-0400 Heart rate 80 /min Juan M TINAJERO [facility] 06-13-2023 09:42-0400 Respiratory rate 16 /min Juan M TINAJERO [facility] 06-13-2023 09:42-0400 Systolic blood pressure 120 mm[Hg] Juan M TINAJERO [facility] Encounters Encounter Date Encounter Type Care Provider Facility Start: 06-14-2024 ambulatory Juna M TINAJERO Facili ty:[facility] Start: 03-22-2024 End: 03-22-2024 ambulatory DAMON RAMOS Not Available Start: 01-13-2024 [facility] Result Encounter Damon Ramos MD Work Phone: [facility] External Department Unsolicited Start: 01-13-2024 [facility] Result Encounter Damon Ramos MD Work Phone: [facility] External Department Unsolicited Start: 01-08-2024 End: 01-08-2024 ambulatory DAMON RAMOS Not Available Start: 01-08-2024 End: 01-08-2024 Office outpatient visit 15 minutes Damon Ramos MD Work Phone: [facility] Comment on above: Dermatitis (Primary Dx); Senile dementia (CMS/HCC) Start: 11-04-2023 Patient encounter procedure Damon Ramos MD Work Phone: [facility] Start: 11-04-2023 End: 11-04-2023 ambulatory DAMON RAMOS Not Available Start: 06-13-2023 End: 06-14-2023 ambulatory Juan M TINAJERO Facility:[facility] Start: 06-13-2023 End: 06-13-2023 Patient encounter procedure Juan M TINAJERO [facility] Start: 07-24-2022 End: 07-25-[address] DAMON RAMOS Facility: Start: 06-10-2022 End: 06-10-2022 Patient encounter procedure Juan M TINAJERO [facility] Start: 2019 End: 2019 Patient encounter procedure Beata Ngo Facility:[facility] Procedures Date Procedure Procedure Detail Performing Clinician Start: 01-13-2024 ALL CBC WITH AUTO DIFF Damon Ramos MD Work Phone: Start: 12-10-2021 Dilation of urethra Aaliyah TINAJERO Start: 02-17-2019 Cystoscopy Juan M GUERRERO Start: 11-04-2014 Cystourethroscopy wi th dilation of urethral stricture Juan M TINAJERO Comment on above: 02/16/19 Plan of Treatment Date Care Activity Detail Author Start: 11-04-2024 Medicare Annual Well ness (AWV) Medicare Annual Wellness (AWV) [facility] Start: 07-08-2024 End: 07-08-2024 Patient encounter procedure 07/08/2024 10:20 AM EDT Office Visit [facility] [address] [place] [address] Lina Rayo APRN-RAILCAR SWITCHMAN [address] [place] [address] [facility] Start: 05-05-2024 End: 05-05-2024 Patient encounter procedure 05/05/2024 9:30 AM EDT Office Visit [facility] [address] [place] [address] Damon Ramos MD [address] [place] [phone] [facility] Start: 02-10-2024 End: 02-10-2024 Patient encounter procedure 02/10/2024 10:15 AM EDT Office Visit [facility] [address] [place] [address] Damon Ramos MD [address] [place] [phone] [facility] Start: 08-01-2023 Influenza vaccination Influenza Vacc ine (#1) [facility] Start: 2012 Pneumococcal Vaccine : 65+ Years (1 - PCV) Pneumococcal Vaccine: 65+ Years (1 - PCV) [facility] Immunizations Immunization Date Immunization Notes Care Provider Fa cility NEGATED: Highlighted row has not occurred!11-17-2020 influenza virus vaccine, unspecified formulation Juan M TINAJERO [facility] Payers Date Payer Category Payer Medicare [id number] 2019 Medicare [id number] 2019 Self-pay 2017 Managed Care HMO (unspecified) [employer] A[employer]NA [id number] 2017-Present [address] [place] [address] O [id number] 2012 Medicare MEDICARE MEDICAR E PART B [id number] 2012-Present [address] [address] [place] [address] Medicare [id number] 1959 Medicare [id number] 1959 Private Health Insurance [id number] 1947 Unknown [id number] [id number] 1947 Unknown [id number] [id number] 1947 Unknown [id number] [id number] 1947 Unknown [id number] [id number] 1947 Unknown [id number] [id number] 1947 Unknown [id number] [id number] Unknown [id number] [id number] Social History Date Type Detail Facility Start: 11-19-2021 End: 09-25-2023 Tobacco smoking status Never smoked tobacco (finding) [facility] Start: 11-04-2023 End: 01-08-2024 Sex Assigned At Female [facility] Tobacco smoking status Never [facility] Start: 09-25-2023 Tobacco use and exposure Smokeless tobacco non-user [facility] Start: 01-08-2024 Alcohol intake Current drinke r [...] Sex Assigned At Not on file [facility] Functional Status Date Assessment Result Facility 06-13-2023 Functional Status N/A [facility] 06-10-2022 Functional Status N/A [facility] History of Present illness Narrative 01-08-2024 Damon Ramos MD - 01/08/2024 11:25 AM Bria Ramos MD - 01/08/2024 11:25 AM Bria Ramos MD - 01/08/2024 10:45 AM EST Note Date & Type Note Facility 01-08-2024 History of Presen t illness Narrative Associated Problem(s): Senile dementia ([facility]/HCC) Worsening dementia and start aricept. Associated Problem(s): [...] 0.5 % cream documented in this encounter [facility] Discharge instructions 06-13-2023 Note Date & Type [...] your health care provider. General instructions Take sghe-jzb-uxuqwdd and prescription medicines only as told by [...] provider. Document Revised: 08/06/2021 Document Reviewed: 08/06/2021 [employer] Patient Education 2022 [employer]. 06/13/2023 10:25:57 Overactive Bladder, Adult Overactive Bladder, [...] your health care provider. General instructions Take alak-tlp-icvcirn and prescription medicines only as told by [...] provider. Document Revised: 08/06/2021 Document Reviewed: 08/06/2021 [employer] Patient Education 2022 [employer]. Follow Up Care 06/10/2022 11:38:49 With:JOE WHITTAKER, Juan M Mandel, URL Address: [facility] [address] [place] [address]- When: Unknown [facility] Hospital Discharge instructions 06-10-2022 Note Date & [...] 11/17/2006 Document Revised: 08/06/2019 Document Reviewed: 10/17/2017 [employer] Patient Education 2020 [employer]. 06/10/2022 11:37:25 Urinary Tract Infection, Adult, Nzvt-xz-Zlmc Urinary Tract Infection, Adult A urinary tract [...] Follow these instructions at home: Medicines Take ohej-hbq-xiydspx and prescription medicines only as told by [...] 05/05/2009 Document Revised: 11/04/2019 Document Reviewed: 05/27/2019 [employer] Patient Education 2020 [employer]. Follow Up Care 12/10/2021 10:50:41 With:JOE WHITTAKER, Juan M Mandel, URL Address: [facility] [address], [place] [phone] When:Within 1 Year(s) Comments:1 year fu [facility] Evaluation + Plan note Note Date & Type Note Facility Evaluation + Plan note Future Appointments Appointment Date:06/13/2023 09:30:00 AM Scheduled Provider:Juan M TINAJERO MD Location:[facility] Appointment Type:URO Office Visit [facility] Evaluation + Plan note Note Date & Type Note Facility Evaluation + Plan note Future Appointments Appointment Date:06/14/2024 08:45:00 AM Scheduled Provider:Juan M TINAJERO MD Location:[facility] Appointment Type:URO Office Visit [facility] Evaluation note Note Date & Type Note Facility Evaluation note Diagnosis Dermatitis- Primary Contact dermatitis and other eczema, due to unspecified cause Senile dementia ([facility]) Senile dementia, uncomplicated documented in this encounter [facility] Hospital course Narrative Note Date & Type Note Facility Hospital course Narrative No data available for this section [facility] Progress note Note Date & Type Note Facility Progress note No data available for this section [facility] Summary Purpose Family History No Family History Records FoundNo Family History Records FoundNo Family History Records FoundNo Family History Records Found Advance Directives No Advanced Directives Records FoundNo Advanced Directives Records FoundNo Advanced Directives Records FoundNo Advanced Directives Records Found Additional Source Comments INFORMATION SOURCE (unrecogn ized section and content) DATE CREATED AUTHOR 01/19/2019 [facility] DATE CREATED AUTHOR AUTHOR'S ORGANIZ ATION 07/31/2022 [facility] DATE CREATED AUTHOR AUTHOR'S ORGANIZ ATION 06/14/2023 [facility] DATE CREATED AUTHOR AUTHOR'S ORGANIZ ATION 03/22/2024 [facility] EPIC Care Team (unrecognized sect ion and content) 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 [facility] [employer] [facility]. provides no warranty or guarantee of the accuracy or completeness of information in this document.
== END 2024-03-30 10:40 | disposition home or self-care (01) ==
LOC: MRI 10:40
PROVIDERS: PCP Family Medicine; Visit Provider Family Medicine
DX: F03.90 Unspecified dementia, unspecified severity, without behavioral disturbance, psychotic disturbance, mood disturbance, and anxiety (principal); R41.0 Disorientation, unspecified; G93.41 Metabolic encephalopathy
CPT/HCPCS: 70551

== ENCOUNTER 2024-05-08 09:05 | Emergency (ER) | payer MEDICARE, OTHER, SELFPAY ==
[2024-05-08] VITALS (27 sets, daily range): BP systolic 125–166; BP diastolic 67–92; PULSE 61–87; TEMP 37.1; O2SAT 96–100; BMI 22.3
--- OUTSIDE RECORDS SUMMARY | 2024-05-08 09:10 | XMS_ITS | CCD ---
Author Organization [facility] Care Team Providers Care Fox Raiser Name Role Phone Beata Ngo Attending Unavailable DAMON RAMOS Primary Care Physician Luisito Sierra Unavailable Ava RAMOS, DR DAMON Dove Admitting Unavailable RACHEL, DR DAMON Dove Primary Care Unavailable RACHEL, DR DAMON Dove Attending Unavailable RAVEN, DR CARLIN Mandel Consulting Unavailable RACHEL, DR DAMON Dove Consulting Unavailable Damon Ramos MD Primary Care Provider DAMON RAMOS Attending Unavailable RACHEL, DAMON Attending Unavailable RACHEL, DAMON Attending Unavailable Genoveva Gamez Attending Unavailable Juan M TINAJERO Attending Unavailable Allergies Allergy Classification Reported Allergen(s) Allergy Type Date of Onset Reaction(s) Facility (6 sources) Sulfamethoxazole / Trimethoprim; Translations: [sulfamethoxazole-tr imethoprim] Drug Allergy 01-28-20 17 Unknown (qualifier value), Itching [facility] (4 sources) Ciprofloxacin Drug Allergy 11-29-20 20 Other, Dizziness [facility] (4 sources) Sulfamethoxazole Allergy to substance 07-08-20 Rash [facility] (4 sources) Trimethoprim Drug Allergy 07-08-20 Rash [facility] Medications Current Medications Medication Drug Class(es) Dates Sig (Normalized) Sig (Original) Fiorinal (2 sources) Platelet Aggregation Inhibitor, Barbiturate, Nonsteroidal Anti-inflammatory Drug, Central Nervous System Stimulant, Methylxanthine Start: 08-18-2019 Fiorinal Oral, q6hr Start Date: 08/18/19 Status: Ordered atorvastatin (6 sources) HMG-CoA Reductase Inhibitor Start: 05-07-2024 take 1 mg by mouth once daily Atorvastatin Active MG PO Daily May 07, 2024 12:00am Start: 08-18-2019 atorvastatin ( Lipitor) 20 MG tablet donepezil (4 sources) Start: 05-07-2024 take 1 mg by mouth o nce daily Donepezil Active MG PO Daily May 07, 2024 12:00am Start: 01-08-2024 take 1 tablet by latonya th at bedtime donepezil (Aricept) 5 MG tablet Indications: Senile dementia (CMS/HCC) Take 1 tablet (5 mg) by mouth at bedtime 30 tablet 2 01/08/2024 Active estradiol 0.1 mg/ml vaginal cream (2 sources) Estrogen Start: 04-01-2023 Estrace 0.1 mg /g Cream 1 gram, Vaginal, MonWedFri, 42.5 gram, Refill(s) 5, Apply one gram 3x/ week., [facility], 163, cm, 06/10/22 11:26:00 EDT, Height/Length Dosing, 74, kg, 06/10/22 11:26:00 EDT, Weight Dosing Start Date: 04/01/23 Status: Ordered Start: 11-19-2021 Estrace 0.1 mg /g Cream 1 gram, Vaginal, MonWedFri, 42.5 gram, Refill(s) 5, Apply one gram 3x/ week., [facility], 163, cm, 11/19/21 10:42:00 EST, Height/Length Dosing, 74, kg, 11/19/21 10:42:00 EST, Weight Dosing Start Date: 11/19/21 Status: Ordered FLUoxetine (6 sources) Serotonin Reuptake Inhibitor Start: 05-07-2024 take 1 mg by mouth once daily Fluoxetine Active MG PO Daily May 07, 2024 12:00am Start: 08-18-2019 FLUoxetine (LA Ozac) 10 MG capsule hydroCHLOROthiazide 25 mg / triamterene 37.5 mg oral tablet (5 sources) Potassium-sparing Diuretic, Thiazide Diuretic Start: 04-04-2023 triamterene-hydrochlorothiaz mia (Maxzide-25) 37.5-25 MG tablet Start: 08-18-2019 take [...] 11-04-2023 Chronic Other aftercare (1 source) Other chcf (current) drug therapy; Translations: [OTH ACQUISITION CONSULTANT CURRENT DRUG THERAPY] Onset: 07-30-2022 Episodic Other aftercare (3 sources) Patient encounter status; Translations: [Other chcf (current) drug therapy] Onset: 11-04-2023 11-04-2023 Episodic [...] (Bld) 1.8 % 0.9 - 7.0 % [facility] Erythrocyte distribution width (RBC) [Ratio] 13.2 % 11.0 - 15.0 % [facility] Hematocrit (Bld) [Volume fraction] 40.2 % 36.0 - 48.0 % [facility] Hemoglobin (Bld) [Mass/Vol] 13.3 g/dL 12.0 - 16.0 g/dL [facility] IMMATURE GRANULOCYTES ABS AUTO 0.02 [facility] Immature granulocytes/100 WBC (Bld) 0.3 % 0.0 - 0.5 % [facility] Interpretation and review of laboratory results Abnormal [facility] LYMPHOCYTES ABSOLUTE AUTO 1.4 [facility] Lymphocytes/100 WBC (Bld) 21.5 % 20.5 - 60.0 % [facility] MCH (RBC) [Entitic mass] 32.8 pg 26.7 - 34.0 pg [facility] MCHC (RBC) [Mass/Vol] 33.1 g/dL 29.9 - 35.2 g/dL [facility] MCV (RBC) [Entitic vol] 99.0 fL 81.0 - 99.0 fL [facility] MONOCYTES ABSOLUTE AUTO 0.8 [facility] Monocytes/100 WBC (Bld) 11.5 % 1.7 - 12.0 % [facility] NEUTROPHILS ABSOLUTE AUTO 4.2 [facility] Neutrophils/100 WBC (Bld) 64.4 % 43.0 - 75.0 % [facility] Platelet mean volume (Bld) [Entitic vol] 10.1 fL 9.5 - 13.5 fL [facility]H EO # 0.1 [facility] PLT 295 [facility] RBC 4.06 Low [facility] WBC 6.6 [facility] Ambulatory Visit Summaryon 0 06-13-2023 Ambulatory Visit Summary CAPRI SERRANO :1945 Visit Date:06/13/2023 Ambulatory Visit Instructions Your Diagnosis Chronic cystitis Feeling of incomplete bladder emptying Urge incontinence Postinfective urethral stricture in female Tests Performed Urnls Dip Stick Auto w/o Microscopy POC [id number] Your Care Team Attending Physician - JOE [...] Juan M Mandel Where: [facility] Patient Educationon 06-13-20 23 Patient Education [...] health care provider. General instructions ? Take meot-[id number]-[id number] and prescription medicines only as told by [...] all f (more content not included)... Normal [facility] Urology Office/Clinic Noteon 06-13-2023 Urology Office/Clinic Note [...] 12/10/21. Follow-up With When Contact Information JOE WIHTTAKER, Juan M Mandel, URL [facility] [address], [place] [address]- Additional Instructions: 1 year Patient Education Overactive [...] Dipstick: Negative (more content not included)... Normal [facility] Comment on above: Result Comment: Elec tronically Signed By: JOE WHITTAKER, Juan M Mandel\.br\Date and Time Signed: 06/13/23 10:28 EDT\.br\Electronically Co-Signed By: Any Rosas.br\Date and Time Co-Signed: 07/14/23 10:26 EDT CBC AUTO DIFFon 07-24-2022 BASO # 0.0 103/ul Normal 0.0-0.1 [facility] Comment on above: Performed By: #### C BC #### [facility] [address] [place] [address] Dr. Finn Wolff Basophils/100 WBC (Bld) 0.6 % Normal 0.2-2.0 [facility] Comment on above: Performed By: #### C BC #### [facility] [address] [place] [address] Dr. Finn Wolff EO # 0.1 103/ul Normal 0.0-0.7 [facility] Comment on above: Performed By: #### C BC #### [facility] [address] [place] [address] Dr. Finn Wolff Eosinophils/100 WBC (Bld) 1.5 % Normal 0.9-7.0 [facility] Comment on above: Performed By: #### C BC #### [facility] [address] [place] [address] Dr. Finn Wolff Erythrocyte distribution width (RBC) [Ratio] 13.1 % Normal 11.0-15.0 [facility] Comment on above: Performed By: #### C BC #### [facility] [address] [place] [address] Dr. Finn Wolff Hematocrit (Bld) [Volume fraction] 42.0 % Normal 36.0-48.0 [facility] Comment on above: Performed By: #### C BC #### [facility] [address] [place] [address] Dr. Finn Wolff Hemoglobin (Bld) [Mass/Vol] 14.0 g/dL Normal 12.0-16.0 [facility] Comment on above: Performed By: #### C BC #### [facility] [address] [place] [address] Dr. Finn Wolff IG # 0.01 10e3/ul Normal 0.00-0.03 [facility] Comment on above: Performed By: #### C BC #### [facility] [address] [place] [address] Dr. Finn Wolff IG % 0.2 % Normal 0.0-0.5 [facility] Comment on above: Performed By: #### C BC #### [facility] [address] [place] [address] Dr. Finn Wolff LYMPH # 1.1 103/ul Critically low 1.2-3.8 [facility] Comment on above: Performed By: #### C BC #### [facility] [address] [place] [address] Dr. Finn Wolff Lymphocytes/100 WBC (Bld) 21.1 % Normal 20.5-60.0 [facility] Comment on above: Performed By: #### C BC #### [facility] [address] [place] [address] Dr. Finn Wolff MANUAL DIFF REQ NO Normal [facility] Comment on above: Performed By: #### C BC #### [facility] [address] [place] [address] Dr. Finn Wolff MCH (RBC) [Entitic mass] 33.4 pg Normal 26.7-34.0 [facility] Comment on above: Performed By: #### C BC #### [facility] [address] [place] [address] Dr. Finn Wolff MCHC (RBC) [Mass/Vol] 33.3 g/dL Normal 29.9-35.2 [facility] Comment on above: Performed By: #### C BC #### [facility] [address] [place] [address] Dr. Finn Wolff MCV (RBC) [Entitic vol] 100.2 fL Critically high 81.0-99.0 [facility] Comment on above: Performed By: #### C BC #### [facility] [address] [place] [address] Dr. Finn Wolff MONO # 0.7 103/ul Normal 0.3-0.8 [facility] Comment on above: Performed By: #### C BC #### [facility] [address] [place] [address] Dr. Finn Wolff Monocytes/100 WBC (Bld) 12.5 % Critically high 1.7-12.0 [facility] Comment on above: Performed By: #### C BC #### [facility] [address] [place] [address] Dr. Finn Wolff NEUT # 3.4 103/ul Normal 1.4-6.5 [facility] Comment on above: Performed By: #### C BC #### [facility] [address] [place] [address] Dr. Finn Wolff Neutrophils/100 WBC (Bld) 64.1 % Normal 43.0-75.0 [facility] Comment on above: Performed By: #### C BC #### [facility] [address] [place] [address] Dr. Finn Wolff Platelet mean volume (Bld) [Entitic vol] 10.7 fL Normal 9.5-13.5 [facility] Comment on above: Performed By: #### C BC #### [facility] [address] [place] [address] Dr. Finn Wolff PLT 262 103/ul Normal 150-450 [facility] Comment on above: Performed By: #### C BC #### [facility] [address] [place] [address] Dr. Finn Wolff RBC 4.19 106/ul Critically low 4.20-5.40 [facility] Comment on above: Performed By: #### C BC #### [facility] [address] [place] [address] Dr. Finn Wolff WBC 5.4 103/ul Normal 4.0-11.0 [facility] Comment on above: Performed By: #### C BC #### [facility] [address] [place] [address] Dr. Finn Wolff LIPID PROFILEon 07-24-2022 CHOL-HDL RATIO NORM SEE BELOW Normal [facility] Comment on above: Result Comment: 3.3 - 4.4 LOW RISK 4.4 - 7.1 AVERAGE RISK 7.1 - 11.0 MODERATE RISK >11.0 HIGH RISK Performed By: #### A LT, AST, LIPID, BMP #### [facility] [address] [address] [address] Finn Wolff Cholesterol [Mass/Vol] 141 mg/dL Normal <=200 [facility] Comment on above: Performed By: #### A LT, AST, LIPID, BMP #### [facility] [address] [address] [address] Finn Wolff Cholesterol in HDL [Mass/Vol] 68 mg/dL Critically high 40-60 [facility] Comment on above: Performed By: #### A LT, AST, LIPID, BMP #### [facility] [address] [address] [address] Finn Wolff Cholesterol in LDL [Mass/Vol] 52.6 mg/dL Normal [facility] Comment on above: Performed By: #### A LT, AST, LIPID, BMP #### [facility] [address] [place] [address] Dr. Finn Wolff Cholesterol.total/C holesterol in HDL [Mass ratio] 2.1 {ratio} Normal [facility] Comment on above: Performed By: #### A LT, AST, LIPID, BMP #### [facility] [address] [address] [address] Finn Wolff HDL NORMAL > or = 60 mg/dl - LO W CARDIOVASCULAR RISK <40 mg/dl - HIGH CARDIOVASCULAR RISK Normal [facility] Comment on above: Performed By: #### A LT, AST, LIPID, BMP #### [facility] [address] [address] [address] Finn Wolff LDL CALC NORMAL SEE BELOW Normal [facility] Comment on above: Result Comment: <100 mg/dl OPTIMAL 100 - 129 mg/dl NEAR OR ABOVE OPTIMAL 130 - 159 mg/dl BORDERLINE HIGH 160 - 189 mg/dl HIGH >190 mg/dl VERY HIGH Performed By: #### A LT, AST, LIPID, BMP #### [facility] [address] [address] [address] Finn Wolff Triglyceride [Mass/Vol] 102 mg/dL Normal <=150 [facility] Comment on above: Performed By: #### A LT, AST, LIPID, BMP #### [facility] [address] [place], [place] [address] Dr. Finn Wolff VLDL CALC 20.4 mg/dL Normal [facility] Comment on above: Performed By: #### A LT, AST, LIPID, BMP #### [facility] [address] [place], [place] [address] Dr. Finn Wolff MG MAMM SCREEN 3D MAU CADon 07-24-2022 MG MAMM SCREEN 3D MAU CAD Patient: CAPRI SERRANO Exam Date: 07/24/2022 : 1945 Gender:F Ordering : DR DAMON RAMOS . Admission #: [id number] Family : Order #: [id number] CLICK HERE TO VIEW EXAM RADIOLOGY REPORT [...] Treatments None Family Cancers None LOCATION: [facility] BREAST COMPOSITION: Heterogeneously dense,which may obscure [...] M.D. on 07/26/2022 at 12:49 Normal [facility] PROF CHEM 8 (BAS METB)on Anion gap [Moles/Vol] 9.6 mmol/L Normal [facility] Comment on above: Performed By: #### A LT, AST, LIPID, BMP #### [facility] [address] [place], [place] [address] Dr. Finn Wolff Calcium [Mass/Vol] 8.9 mg/dL Normal 8.5-10.1 [facility] Comment on above: Performed By: #### A LT, AST, LIPID, BMP #### [facility] [address] [address] [address] Finn Wolff Chloride [Moles/Vol] 100 mmol/L Normal 98-107 [facility] Comment on above: Performed By: #### A LT, AST, LIPID, BMP #### [facility] [address] [place] [address] Dr. Finn Wolff CO2 [Moles/Vol] 31.7 mmol/L Normal 21.0-32.0 [facility] Comment on above: Performed By: #### A LT, AST, LIPID, BMP #### [facility] [address] [place] [address] Dr. Finn Wolff Creatinine [Mass/Vol] 1.15 mg/dL Critically high 0.55-1.02 [facility] Comment on above: Performed By: #### A LT, AST, LIPID, BMP #### [facility] [address] [place] [address] Dr. Finn Wolff EGFR-AF MALAGASY 56 mL/min/1.73m2 Critically low >=60 [facility] Comment on above: Performed By: #### A LT, AST, LIPID, BMP #### [facility] [address] [place] [address] Dr. Finn Wolff EGFR-NON AF MALAGASY 46 mL/min/1.73m2 Critically low >=60 [facility] Comment on above: Performed By: #### A LT, AST, LIPID, BMP #### [facility] [address] [place] [address] Dr. Finn Wolff Glucose [Mass/Vol] 88 mg/dL Normal 74-106 [facility] Comment on above: Performed By: #### A LT, AST, LIPID, BMP #### [facility] [address] [place] [address] Dr. Finn Wolff Potassium [Moles/Vol] 3.3 mmol/L Critically low 3.5-5.1 [facility] Comment on above: Performed By: #### A LT, AST, LIPID, BMP #### [facility] [address] [place] [address] Dr. Finn Wolff Sodium [Moles/Vol] 138 mmol/L Normal 136-145 [facility] Comment on above: Performed By: #### A LT, AST, LIPID, BMP #### [facility] [address] [place] [address] Dr. Finn Wolff Urea nitrogen [Mass/Vol] 19.0 mg/dL Critically high 7.0-18.0 [facility] Comment on above: Performed By: #### A LT, AST, LIPID, BMP #### [facility] [address] [place] [address] Dr. Finn Wolff Urea nitrogen/Creatinine [Mass ratio] 16.5 mg/mg Normal [facility] Comment on above: Performed By: #### A LT, AST, LIPID, BMP #### [facility] [address] [place] [address] Dr. Finn Kurtz 07-24-2022 AST [Catalytic activity/Vol] 23 U/L Normal 15-37 [facility] Comment on above: Performed By: #### A LT, AST, LIPID, BMP #### [facility] [address] [place] [address] Dr. [facility]-2022 ALT [Catalytic activity/Vol] 21 U/L Normal 14-59 [facility] Comment on above: Performed By: #### A LT, AST, LIPID, BMP #### [facility] [address] [place] [address] Dr. Finn Wolff Urine Cultureon 2019 Bacteria identified Cx Nom (U) Reason for Exam Dysuria Urine ORGANISM: Escherichia coli (O:ESCCOL) [place] Count 50,000 Aerobic DANAE Charge (Neg) --- [...] RESISTANT TO ALL B-LACTAM DRUGS. PERFORMED BY: [place] [address] [facility] CUT OUT MACHINE OPERATOR SCARLTET WHIPPLE M.D. [facility] Comment on above: Performed By: #### C UU #### [address] Vital Signs Date Time Vital Sign Value Performing Clinician Facility 05-07-2024 13:20-0400 Body height 162.56 cm [facility] 05-07-2024 13:20-0400 Body mass index (BMI) [Ratio] 25 kg/m2 [facility] 05-07-2024 13:20-0400 Body temperature 98.2 [degF] [facility] 05-07-2024 13:20-0400 Body weight 66 kg [facility] 05-07-2024 13:20-0400 Diastolic blood pressure 74 mm[Hg] [facility] 05-07-2024 13:20-0400 Heart rate 67 /min [facility] 05-07-2024 13:20-0400 Respiratory rate 16 /min [facility] 05-07-2024 13:20-0400 SaO2% (BldA) [Mass fraction] 96 % [facility] 05-07-2024 13:20-0400 Systolic blood pressure 132 mm[Hg] [facility] 01-08-2024 10:52-0500 Body height 167.6 cm Damon Ramos MD Work Phone: [facility] 01-08-2024 10:52-0500 Body mass index (BMI) [Ratio] 23.89 kg/m2 Damon Ramos MD Work Phone: [facility] 01-08-2024 10:52-0500 Body temperature 97.11 [degF] Damon Ramos MD Work Phone: [facility] 01-08-2024 10:52-0500 Body weight 67.13 kg Damon Ramos MD Work Phone: [facility] 01-08-2024 10:52-0500 Diastolic blood pressure 80 mm[Hg] Damon Ramos MD Work Phone: [facility] 01-08-2024 10:52-0500 Heart rate 101 /min Damon Ramos MD Work Phone: [facility] 01-08-2024 10:52-0500 SaO2% (BldA) [Mass fraction] 97 % Damon Ramos MD Work Phone: [facility] 01-08-2024 10:52-0500 Systolic blood pressure 140 mm[Hg] Damon Ramos MD Work Phone: [facility] 06-13-2023 09:42-0400 Blood Pressure Location Juan M TINAJERO [facility] 06-13-2023 09:42-0400 Diastolic blood pressure 76 mm[Hg] Juan M TINAJERO [facility] 06-13-2023 09:42-0400 Heart rate 80 /min Juan M TINAJERO [facility] 06-13-2023 09:42-0400 Respiratory rate 16 /min Juan M TINAJERO [facility] 06-13-2023 09:42-0400 Systolic blood pressure 120 mm[Hg] Juan M TINAJERO [facility] Encounters Encounter Date Encounter Type Care Provider Facility Start: 05-18-2024 ambulatory Genoveva X Orzech Facilit y:[facility] Start: 05-07-2024 End: 05-07-2024 ambulatory [facility] Work Phone: Start: 05-07-2024 End: 05-07-2024 Patient encounter procedure [facility] Work Phone: Start: 03-22-2024 End: 03-22-2024 ambulatory DAMON RAMOS Not Available Start: 01-13-2024 [facility] Result Encounter Damon Ramos MD Work Phone: [facility] Unsolicited Start: 01-13-2024 [facility] Result Encounter Damon Ramos MD Work Phone: [facility] Unsolicited Start: 01-08-2024 End: 01-08-2024 ambulatory DAMON RAMOS Not Available Start: 01-08-2024 End: 01-08-2024 Office outpatient visit 15 minutes Damon Ramos MD Work Phone: [facility] Comment on above: Dermatitis (Primary Dx); Senile dementia (CMS/HCC) Start: 11-04-2023 Patient encounter procedure Damon Ramos MD Work Phone: [facility] Start: 11-04-2023 End: 11-04-2023 ambulatory DAMON RAMOS Not Available Start: 06-13-2023 End: 06-13-2023 ambulatory Juan M TINAJERO Facility:[facility] Start: 06-13-2023 End: 06-13-2023 Patient encounter procedure Juan M TINAJERO [facility] Start: 07-24-2022 End: 07-25-[address] DAMON RAMOS Facility: Start: 06-10-2022 End: 06-10-2022 Patient encounter procedure Juan M TINAJERO [facility] Start: 2019 End: 2019 Patient encounter procedure Beata Ngo Facility:[facility] Procedures Date Procedure Procedure Detail Performing Clinician Start: 01-13-2024 ALL CBC WITH AUTO DIFF Damon Ramos MD Work Phone: Start: 12-10-2021 Dilation of urethra Aaliyah TINAJERO Start: 02-17-2019 Cystoscopy Juan M YANA GUERRERO Start: 11-04-2014 Cystourethroscopy wi th dilation of urethral stricture Juan M TINAJERO Comment on above: 02/16/19 Plan of Treatment Date Care Activity Detail Author Start: 11-04-2024 Medicare Annual Wellness (AWV) Medicare Annual Wellness (AWV) [facility] Start: 07-08-2024 End: 07-08-2024 Patient encounter procedure 07/08/2024 10:20 AM EDT Office Visit [facility] [address] [place] [phone] Lina Rayo, HAND WOOD SANDER-BACTERIOLOGIST [employer] [address] [place], [place] [id number] [facility] Start: 05-05-2024 End: 05-05-2024 Patient encounter procedure 05/05/2024 9:30 AM EDT Office Visit [facility] [address] [place] [phone] Damon Ramos MD [address] [place] [phone] [facility] Start: 02-10-2024 End: 02-10-2024 Patient encounter procedure 02/10/2024 10:15 AM EDT Office Visit [facility] [address] [place] [phone] Damon Ramos MD [address] [place] [phone] [facility] Start: 08-01-2023 Influenza vaccination Influenza Vaccine (#1) [facility] Start: 2012 Pneumococcal Vaccine: 65+ Years (1 - PCV) Pneumococcal Vaccine: 65+ Years (1 - PCV) [facility] Bacteria identified in Urine by Culture [facility] Immunizations Immunization Date Immunization Notes Care Provider Fa cility NEGATED: Highlighted row has not occurred!11-17-2020 influenza virus vaccine, unspecified formulation Juan M TINAJERO [facility] Payers Date Payer Category Payer Medicare [id number] 2019 Medicare [id number] 2019 Self-pay 2017 Managed Care HMO (unspecified) [employer] A[employer] [id number] 2017-Present [address] [place] [address] HMO [id number] 2012 Medicare MEDICARE MEDICAR E PART B [id number] 2012-Present [address] [address] [place] [address] Medicare [id number] 1959 Medicare [id number] 1959 Private Health Insurance [id number] 1945 Unknown [id number] 1945 Unknown [id number] 1945 Unknown [id number] 1945 Unknown [id number] 1945 Unknown [id number] 1945 Unknown [id number] Unknown [id number] Social History Date Type Detail Facility Start: 11-19-2021 End: 05-07-2024 Tobacco smoking status Never smoked tobacco (finding) [facility] Start: 11-04-2023 End: 01-08-2024 Sex Assigned At Female [facility] Tobacco smoking status Never [facility] Start: 09-25-2023 Tobacco use and exposure Smokeless [...] At Not on file [facility] Start: 1945 Sex Assigned At Female F [facility] Functional Status Date Assessment Result Facility 06-13-2023 Functional Status N/A [facility] 06-10-2022 Functional Status N/A [facility] History of Present illness Narrative 01-08-2024 Damon [...] 0.5 % cream documented in this encounter [facility] Discharge instructions 06-13-2023 Note Date & [...] your health care provider. General instructions Take mniw-ueh-qeeevee and prescription medicines only as told by [...] provider. Document Revised: 08/06/2021 Document Reviewed: 08/06/2021 CAPPTURE Patient Education 2022 [employer]. 06/13/2023 10:25:57 Overactive Bladder, Adult Overactive Bladder, [...] your health care provider. General instructions Take swyg-wtm-agcelbw and prescription medicines only as told by [...] provider. Document Revised: 08/06/2021 Document Reviewed: 08/06/2021 CAPPTURE Patient Education 2022 [employer]. Follow Up Care 06/10/2022 11:38:49 With:JOE WHITTAKER, Juan M Mandel, URL Address: [facility] [address] , [place] [address]- When: Unknown [facility] Hospital Discharge instructions 06-10-2022 Note Date & [...] 11/17/2006 Document Revised: 08/06/2019 Document Reviewed: 10/17/2017 CAPPTURE Patient Education 2020 [employer]. 06/10/2022 11:37:25 Urinary Tract Infection, Adult, Qucp-wg-Ocys Urinary Tract Infection, Adult A urinary tract [...] Follow these instructions at home: Medicines Take onrr-ink-zymiche and prescription medicines only as told by [...] 05/05/2009 Document Revised: 11/04/2019 Document Reviewed: 05/27/2019 CAPPTURE Patient Education 2020 [employer]. Follow Up Care 12/10/2021 10:50:41 With:Juan M TINAJERO MD, URL Address: [facility] [address] , [place] [address]- [phone] When:Within 1 Year(s) Comments:1 year fu [facility] Evaluation + Plan note Note Date & Type Note Facility Evaluation + Plan note Future Appointments Appointment Date:06/13/2023 09:30:00 AM Scheduled Provider:Juan M TINAJERO MD Location:[facility] Appointment Type:URO Office Visit [facility] Evaluation + Plan note Note Date & Type Note Facility Evaluation + Plan note Future Appointments Appointment Date:06/14/2024 08:45:00 AM Scheduled Provider:Juan M TINAJERO MD Location:[facility] Appointment Type:URO Office Visit [facility] Evaluation note Note Date & Type Note Facility Evaluation note Diagnosis Dermatitis- Primary Contact dermatitis and other eczema, due to unspecified cause Senile dementia (CMS/HCC) Senile dementia, uncomplicated documented in this encounter [facility] Evaluation note Note Date & Type Note Facility Evaluation note No assessment information availa [facility] Work Phone: Hospital course Narrative Note Date & Type Note Facility Hospital course Narrative No data available for this section [facility] Progress note Note Date & Type Note Facility Progress note No data available for this section [facility] Summary Purpose Family History Relationship Condition Age at Onset Recorded Date/T luis father Unknown Not Specified Unknown Advance Directives Advance Directive Response Recorded Date/ Time Advance Directives No August 9:36am Chief Complaint and Reason for Visit Chief Complaint Poss uti Additional Source Comments INFORMATION SOURCE (unrecogn ized section and content) DATE CREATED AUTHOR 01/19/2019 [facility] DATE CREATED AUTHOR AUTHOR'S ORGANIZ ATION 07/31/2022 [facility] DATE CREATED AUTHOR AUTHOR'S ORGANIZ ATION 03/22/2024 [facility] EPIC DATE CREATED AUTHOR AUTHOR'S ORGANIZ ATION 05/06/2024 [facility] Care Team (unrecognized sect ion and content) Fox Raiser Relationship Specialty Start Date End Date Damon Ramos MD [address] [place] [address] PCP - General Family Medicine 01/08/24 Fox Raiser Relationship Specialty Start Date End Date Damon Ramos MD [address] [place] [address] PCP - General Family Medicine 01/08/24 Team Status: Active Member Role Status Dates Damon Ramos MD Primary Care Provider Active Team Status: Inactive Member Role Status Dates Damon Ramos MD Primary Care Provider Active S tart: May 07, 2024 End: May 07, 2024 Daria Walls APRN Attending Provider Active S tart: May 07, 2024 End: May 07, 2024 Reason for Visit (unrecogniz ed section and content) Reason Comments Rash Rash on breast Goals (unrecognized section and content) Goals may be documented in a n alternate section FOR RECORDS PERTAINING TO PATIENTS WHO ARE [...] BE BASED ON THE PRIMARY CLINICAL RECORDS. [employer] [email or web address] provides no warranty or guarantee of the accuracy or completeness of information in this document.
--- NOTE | 2024-05-08 09:42 | XR_ITS ---
The [address] [address] Patient Name: LUIS CARLOS SERRANO MRN: [id number] date: 1945 Sex: F Assigned Patient Location: ER Current Patient Location: ER Accession/Order Number: [id number] Exam Date: 05/08/2024 10:25 Report Date: 05/08/2024 11:30 At the request of: LOUIS JONES Procedure: XR chest 1V EXAM: XR chest 1V HISTORY: confusion COMPARISON: None. TECHNIQUE: Chest X-ray AP, 1 view FINDINGS: Support devices: None. Lungs/pleura: No consolidation, effusion, or pneumothorax. There is a 0 6 cm right upper lobe pulmonary nodule, likely representing calcified granuloma. Heart and mediastinum: Normal contours. Bones: No acute abnormality identified. XR/XR chest 1V Impression: No radiographic evidence of acute cardiopulmonary process. Electronically authenticated by: SONDRA MOSQUEDA Date: 05/08/2024 11:30
--- NOTE | 2024-05-08 09:42 | CT_ITS ---
The [address] [address] Patient Name: LUIS CARLOS SERRANO MRN: [id number] date: 1945 Sex: F Assigned Patient Location: ER Current Patient Location: ER Accession/Order Number: [id number] Exam Date: 05/08/2024 12:45 Report Date: 05/08/2024 14:24 At the request of: LOUIS JONES Procedure: CT abdomen pelvis w con EXAM: CT abdomen pelvis w con HISTORY: Lower abdominal pain for one week. Difficulty urinating. COMPARISON: None. TECHNIQUE: Enhanced helical acquisition obtained through the abdomen and the pelvis. FINDINGS: Significant image degradation secondary to patient motion. Minimal dependent atelectasis within the included lung bases. The pleural spaces are clear. Unremarkable gallbladder. No significant biliary ductal dilatation. The liver, spleen, pancreas and the adrenal glands are unremarkable. Left renal cortical cysts, the largest measuring 1.2 cm. Moderate diffuse atherosclerotic disease. No enlarged lymph nodes within the abdomen or the pelvis. Moderate stool burden. Diverticulosis without radiographic evidence of diverticulitis. Multiple right adnexal cystic structures maximally measuring 5.9 cm. Prior hysterectomy. No ascites or focal intraperitoneal fluid collections. Moderate multilevel degenerative changes throughout the lumbar spine. Levoconvex scoliotic curvature of the lumbar spine. CT/CT abdomen pelvis w con IMPRESSION: 1. Image degradation secondary to patient motion. 2. Diverticulosis without radiographic evidence of diverticulitis. 3. Prior hysterectomy. Cystic structures within the right adnexa maximally measuring 5.9 cm in aggregate. Follow-up nonemergent pelvic ultrasound is recommended for more optimal characterization. 4. Left renal cysts. Electronically authenticated by: TA KELLY Date: 05/08/2024 14:24
--- NOTE | 2024-05-08 09:42 | ECG_ITS ---
The [facility] Test Date: 2024-05-08 Pat Name: LUIS CARLOS SERRANO Department: Room: - Gender: Female Compensation Manager: : 1945 Requested By: PHUONG RAMOS Order Number: [id number] Reading MD: CHAY VALERIO Measurements Intervals [place] Rate: 65 P: 60 OR: 152 QRS: -13 QRSD: 92 T: 16 QT: 366 QTc: 378 Interpretive Statements 1100 Sinus rhythm 3234 Anteroseptal myocardial infarction, age undetermined 8102 Low QRS voltage in chest leads 9150 abnormal ECG No previous ECG available for comparison Electronically Signed On 05-08-2024 13:07:02 EDT by CHAY VALERIO
--- NOTE | 2024-05-08 09:48 | ED.GENADUL1 ---
HPI HPI - General Adult General Chief complaint: Abdominal Pain Stated complaint: STOMACH PAIN Time Seen by Provider: 05/08/24 09:30 Source: patient Mode of arrival: walk-in History of Present Illness HPI narrative: Patient presents to ED complaining of lower abdominal pain. She does have a history of pancreatitis the reports and thinks it sounds like it could be similar but it has been years since she has had any attack. She denies any recent alcohol consumption. She has recently been worked up with her primary doctor for confusion. Patient has had a recent MRI brain and is being worked up for potential dementia. Denies any recent falls or trauma. No new neurological deficits but does have the confusion which continues to worsen. Patient and family state that the MRI brain was normal recently. Patient complains of lower abdominal pain but states she is having normal bowel movements and no UTI symptoms. No fevers no back pain. Patient has had a hysterectomy in the past but denies any other abdominal surgeries. Related Data Previous Rx's ?Medication ?Instructions ?Recorded cephalexin 500 mg capsule 500 mg PO TID 7 days #21 caps 05/08/24 Allergies Allergy/AdvReac Type Severity Reaction Status Date / Time ciprofloxacin Allergy Intermediate Abdominal Verified 05/08/24 09:49 Pain sulfamethoxazole Allergy Intermediate Verified 05/08/24 09:49 [From Bactrim] trimethoprim [From Bactrim] Allergy Intermediate Verified 05/08/24 09:49 Opioid HPI Opioid Management Most Recent Opioid Data: Last ED Pain Assessment 05/08/24 11:06 Review of Systems ROS Status of ROS 10 or more systems reviewed and unremarkable except as noted in history and below Exam Narrative Exam Narrative: Time Seen: [] Vital Signs: [Per nurse's notes.] General: [Alert] Skin: [Warm, dry, no rash.] Head: [Normocephalic, atraumatic.] Neck: [Supple, trachea midline.] Eye: [Pupils are equal, round and reactive to light, extraocular movements are intact, normal conjunctiva.] Ears, nose, mouth and throat: oral mucosa moist. Cardiovascular: [Regular rate and rhythm, no murmur.] Respiratory: [Lungs are clear to auscultation, respirations are non-labored, breath sounds are equal.] Chest wall: [No tenderness, no deformity.] Gastrointestinal: [Soft, Mild lower abdominal tenderness non distended, normal bowel sounds.] MSK: 5 out of 5 muscle strength x 4 extremities no calf pain or edema Lymphatics: [No lymphadenopathy.] Psychiatric: [Cooperative, appropriate mood & affect.] Neurological: [Alert and oriented to person, place, time, and situation, no focal neurological deficit observed.Patient did have some confusion with following orders and direction like obtaining a urine sample.However she does answer most questions appropriately. Constitutional Vital Signs, click to edit/add: Last Vital Signs Temp 98.8 F 05/08/24 09:11 Pulse 73 05/08/24 14:16 Resp 18 05/08/24 14:15 BP 160/92 H 05/08/24 14:14 Pulse Ox 98 05/08/24 14:14 O2 Del Method Room Air 05/08/24 09:11 Course Vital Signs Vital signs: Vital Signs Temperature 98.8 F 05/08/24 09:11 Pulse Rate 76 05/08/24 09:11 Respiratory Rate 16 05/08/24 09:11 Blood Pressure 150/81 H 05/08/24 09:11 Pulse Oximetry 97 05/08/24 09:11 Oxygen Delivery Method Room Air 05/08/24 09:11 Temperature 98.8 F 05/08/24 09:11 Pulse Rate 73 05/08/24 14:16 Respiratory Rate 18 05/08/24 14:15 Blood Pressure 160/92 H 05/08/24 14:14 Pulse Oximetry 98 05/08/24 14:14 Oxygen Delivery Method Room Air 05/08/24 09:11 Medical Decision Making MDM Narrative Medical decision making narrative: Patient was workup here was relatively nonacute except for a UTI. She was given her first dose of IV antibiotics here in ED and will be stable for discharge home on p.o. antibiotics. Patient's CT shows a cyst that needs follow-up outpatient and this information was relayed to the family. Continue to work with your family doctor outpatient for the confusion. The confusion may be worse right now due to the urinary infection for which she will go on antibiotics. Differential Diagnosis Differential Diagnosis: UTI dementia, infection Medical Records Medical records reviewed: Yes I reviewed the patient's medical records Lab Data Lab results reviewed: Yes I reviewed the patient's lab results Labs: Lab Results 05/08/24 05/08/24 Range/Units 09:55 10:15 WBC 5.7 (4.0-11.0) 10^3/uL RBC 3.59 L (4.20-5.40) 10^6/uL Hgb 11.9 L (12.0-16.0) g/dL Hct 36.0 (36.0-48.0) % MCV 100.3 H (81.0-99.0) fL MCH 33.1 (26.7-34.0) pg MCHC 33.1 (29.9-35.2) g/dL RDW 13.0 (11.0-15.0) % Plt Count 235 (150-450) 10^3/uL MPV 9.8 (9.5-13.5) fL Neut % (Auto) 66.4 (43.0-75.0) % Lymph % (Auto) 17.2 L (20.5-60.0) % [place] % (Auto) 11.1 (1.7-12.0) % Eos % (Auto) 4.6 (0.9-7.0) % Baso % (Auto) 0.7 (0.2-2.0) % Neut # (Auto) 3.8 (1.4-6.5) 10^3/uL Lymph # (Auto) 1.0 L (1.2-3.8) 10^3/uL [place] # (Auto) 0.6 (0.3-0.8) 10^3/uL Eos # (Auto) 0.3 (0.0-0.7) 10^3/uL Baso # (Auto) 0.0 (0.0-0.1) 10^3/uL Abs Immat Gran (auto) 0.00 (0.00-0.03) 10^3/uL Imm/Tot Granulo (auto) 0.0 (0.0-0.5) % Sodium 143 (136-145) mmol/L Potassium 3.7 (3.5-5.1) mmol/L Chloride 106 (98-107) mmol/L Carbon Dioxide 29.5 (21.0-32.0) mmol/L Anion Gap 11.2 BUN 18.0 (7.0-18.0) mg/dL Creatinine 1.22 H (0.55-1.02) mg/dL Est GFR ( Amer) 52 L (>=60) Est GFR (Non-Af Amer) 43 L (>=60) BUN/Creatinine Ratio 14.8 Glucose 96 (74-106) mg/dL Calcium 8.5 (8.5-10.1) mg/dL Total Bilirubin 0.5 (0.2-1.0) mg/dL AST 19 (15-37) U/L ALT 20 (14-59) U/L Alkaline Phosphatase 58 (46-116) U/L Total Protein 6.4 (6.4-8.2) g/dL Albumin 2.9 L (3.4-5.0) g/dL Globulin 3.5 g/dL Albumin/Globulin Ratio 0.8 Lipase 26.0 (16.0-77.0) U/L Urine Color Lt. yellow (YELLOW) Urine Clarity Clear (CLEAR) Urine pH 6.5 (5.0-9.0) Ur Specific [place] 1.025 (1.005-1.025) Urine Protein Trace (NEG/TRACE) mg/dL Urine Glucose (UA) Negative (NEGATIVE) mg/dL Urine Ketones Negative (NEGATIVE) mg/dL Urine Occult Blood Negative (NEGATIVE) Urine Nitrite Positive A (NEGATIVE) Urine Bilirubin Negative (NEGATIVE) Urine Urobilinogen 1.0 (0.2-1.0) EU/dL Ur Leukocyte Esterase Small A (NEGATIVE) Urine RBC 0-2 (0-2) #/HPF Urine WBC 10-20 A (NONE SEEN) #/HPF Ur Squamous Epith Cells Few A (NONE/RARE) #/LPF Urine Crystals None seen (None Seen) #/HPF Urine Bacteria Moderate A (NONE SEEN) #/HPF Urine Casts None seen (NONE SEEN) #/LPF Urine Mucus None seen (NONE SEEN) Ur Culture Indicated? Yes Imaging Data CT scan - abdomen: Radiologist's impression: ITS Impressions Abdomen/Pelvis CT 05/08/24 09:42 IMPRESSION: 1. Image degradation secondary to patient motion. 2. Diverticulosis without radiographic evidence of diverticulitis. 3. Prior hysterectomy. Cystic structures within the right adnexa maximally measuring 5.9 cm in aggregate. Follow-up nonemergent pelvic ultrasound is recommended for more optimal characterization. 4. Left renal cysts. Electronically authenticated by: TA KELLY Date: 05/08/2024 14:24 Chest X-Ray 05/08/24 09:42 Impression: No radiographic evidence of acute cardiopulmonary process. Electronically authenticated by: SONDRA ROCHELLEFIDEL Date: 05/08/2024 11:30 ECG Data Attestation: I personally reviewed and interpreted this ECG as follows: Interpretation: EKG INTERPRETATION Time: []948 Rate: []65 Rhythm: _ []Normal sinus rhythm ST segments: _ [] T waves: _ [] Ectopy: _ [] P wave/[place] interval: _ [] QRS interval: _ [] QT interval: _ [] Comparison: _ [] Comparison EKG date: [] Performed by: [self]No acute ST elevation or depression Discharge Plan Discharge Stand Alone Forms: Portal Instructions Chief Complaint: Abdominal Pain Clinical Impression: Abdominal pain, Acute UTI Patient Disposition: Home, Self-Care Time of Disposition Decision: 14:33 Condition: Good Mode of Transportation: Private Vehicle Prescriptions / Home Meds: New cephalexin 500 mg capsule 500 mg PO TID 7 Days Qty: 21 0RF Print Language: Kinyarwanda Instructions: Urinary Tract Infection in Older Adults (ED) Referrals: Damon Fink MD [Primary Care Provider] - 1 week
[2024-05-08 10:20] LABS: Bilirubin Urine NEGATIVE (NEGATIVE); Blood Urine NEGATIVE (NEGATIVE); Clarity Urine CLEAR (CLEAR); Color Urine LT. YELLOW (YELLOW); Glucose Urine UA NEGATIVE (NEGATIVE); Ketones Urine NEGATIVE (NEGATIVE); Leukocyte Esterase Urine SMALL (NEGATIVE); Nitrite Urine POSITIVE (NEGATIVE); Protein Urine TRACE mg/dL (NEG/TRACE); Specific Gravity Urine 1.025 (1.005-1.025); pH Urine 6.5 (5.0-9.0)
[2024-05-08 10:21] LABS: Urine Microscopic Indicated YES
[2024-05-08 10:31] LABS: Basophils Percent Auto 0.7 % (0.2-2.0); Eosinophils Absolute Auto 0.3 10^3/uL (0.0-0.7); Eosinophils Percent Auto 4.6 % (0.9-7.0); Hemoglobin 11.9 g/dL (12.0-16.0); Lymphocytes Percent Auto 17.2 % (20.5-60.0); Mean Corpuscular HGB Conc 33.1 g/dL (29.9-35.2); Mean Corpuscular Hemoglobin 33.1 pg (26.7-34.0); Mean Corpuscular Volume 100.3 fL (81.0-99.0); Mean Platelet Volume 9.8 fL (9.5-13.5); Monocytes Absolute Auto 0.6 10^3/uL (0.3-0.8); Monocytes Percent Auto 11.1 % (1.7-12.0); Neutrophils Absolute Auto 3.8 10^3/uL (1.4-6.5); Neutrophils Percent Auto 66.4 % (43.0-75.0); Platelet Count 235 10^3/uL (150-450); Red Blood Count 3.59 10^6/uL (4.20-5.40); White Blood Count 5.7 10^3/uL (4.0-11.0)
[2024-05-08] MEDS: CEFTRIAXONE 1,000 MG in 0.9 % SODIUM CHLORIDE 50 ML 100 MG IV (10:34)
[2024-05-08 10:42] LABS: Bacteria Urine MODERATE #/HPF (NONE SEEN); Mucus Urine NONE SEEN (NONE SEEN)
[2024-05-08 10:43] LABS: RBC Urine 0-2 #/HPF (0-2); Squamous Epithelial Cell Urine FEW #/LPF (NONE/RARE)
[2024-05-08 10:44] LABS: Cast Seen? NONE SEEN #/LPF (NONE SEEN); Crystals Seen? None Seen #/HPF (None Seen); Urine Culture Indicated YES
[2024-05-08 10:58] LABS: Alanine Aminotransferase 20 U/L (14-59); Albumin Globulin Ratio 0.8; Albumin Level 2.9 g/dL (3.4-5.0); Alkaline Phosphatase 58 U/L (46-116); Anion Gap 11.2; Aspartate Amino Transferase 19 U/L (15-37); BUN Creatinine Ratio 14.8; Bilirubin Total 0.5 mg/dL (0.2-1.0); Calcium 8.5 mg/dL (8.5-10.1); Carbon Dioxide 29.5 mmol/L (21.0-32.0); Chloride 106 mmol/L (98-107); Estimated GFR (African America 52 (>=60); Estimated GFR (Non-African Ame 43 (>=60); Globulin 3.5 g/dL; Glucose 96 mg/dL (74-106); Potassium 3.7 mmol/L (3.5-5.1); Sodium 143 mmol/L (136-145); Total Protein 6.4 g/dL (6.4-8.2)
== END 2024-05-08 14:47 | disposition home or self-care (01) ==
PROVIDERS: Emergency Provider Emergency Medicine; PCP Family Medicine
DX: N39.0 Urinary tract infection, site not specified (principal); R10.30 Lower abdominal pain, unspecified; Z90.710 Acquired absence of both cervix and uterus
CPT/HCPCS: 36415; 71045; 74177; 80053; 81001; 83690; 85025; 87086; 87150; 87186; 93005; 96365; 99285; Q9967

== ENCOUNTER 2024-06-27 10:06 | Emergency (ER) | payer MEDICARE, OTHER, SELFPAY ==
[2024-06-27 10:15] VITALS: BP 167/104; PULSE 76; TEMP 36.9; O2SAT 97; BMI 25.8
--- NOTE | 2024-06-27 10:17 | CT_ITS ---
The [address] [address] Patient Name: LUIS CARLOS SERRANO MRN: [id number] date: 1945 Sex: F Assigned Patient Location: ER Current Patient Location: ER Accession/Order Number: [id number] Exam Date: 06/27/2024 10:30 Report Date: 06/27/2024 11:33 At the request of: USHA DELGADILLO Procedure: CT cervical spine wo con EXAM: CT cervical spine wo con HISTORY: Trauma after a fall hitting the head. Hematoma in the forehead. COMPARISON: None. TECHNIQUE: 2 mm thick axial images were obtained through the cervical spine without contrast. 2-D reformat images were created in the coronal and sagittal planes. FINDINGS: No acute abnormality is identified involving visualized intracranial structures. The mastoids appear well aerated. The skull base is intact. The visualized mandible is intact. There is no focal abnormality involving the thyroid gland. There is scarring in the lung apices. There is diffuse osteopenia. No acute fracture is identified in the cervical spine. There is anterolisthesis of C5 on C6 measuring 3 mm. The odontoid is intact. Severe degenerative change involves the C1-C2 articulation anteriorly. There is no prevertebral soft tissue swelling. C2-C3: There is mild facet arthropathy with no focal disc herniation. There is no central or foraminal stenosis. C3-C4: A right uncovertebral/foraminal disc-osteophyte complex measures 4 mm with uncovertebral spurring on the left. There is severe right-sided facet arthropathy and severe right foraminal narrowing with mild to moderate left foraminal narrowing. There is no central stenosis. C4-C5: There is minimal grade 1 anterolisthesis with severe left and moderate right-sided facet arthropathy and uncovertebral spurring. There is mild left foraminal narrowing without central stenosis. C5-C6: There is anterolisthesis of C5 on C6 with severe right and moderate left-sided facet arthropathy. There is uncovertebral spurring and moderately severe right foraminal narrowing without central stenosis. C6-C7: There is a diffuse disc bulge and uncovertebral spurring with severe right-sided facet arthropathy. There is moderately severe right foraminal narrowing without central stenosis. C7-T1: There is minimal grade 1 anterolisthesis with moderate to severe facet arthropathy more pronounced on the right. CT/CT cervical spine wo con IMPRESSION: 1. No acute fracture is visualized in the cervical spine. 2. Discogenic change and facet arthropathy as described above with grade 1 anterolisthesis at C4-C5 and C5-C6. There is multilevel foraminal narrowing as described above by level without central stenosis. The foraminal narrowing includes moderately severe right foraminal narrowing at C5-C6 and C6-C7. Electronically authenticated by: TRIP PACE Date: 06/27/2024 11:33
--- NOTE | 2024-06-27 10:17 | CT_ITS ---
[address] [address] Patient Name: LUIS CARLOS SERRANO MRN: [id number] date: 1945 Sex: F Assigned Patient Location: ED.MAIN Current Patient Location: ER Accession/Order Number: [id number] Exam Date: 06/27/2024 10:30 Report Date: 06/27/2024 11:04 At the request of: USHA DELGADILLO Procedure: CT head/brain wo con EXAMINATION: CT head/brain wo con, 06/27/2024 10:30 AM EDT HISTORY: fall, hematoma to right forehead COMPARISON: None. TECHNIQUE: CT scan of the head was performed without IV contrast. CT dose reduction technique was used, including Automated Exposure Control. FINDINGS: BRAIN PARENCHYMA/CSF SPACES: Ventricles are normal in size for age. There is no hemorrhage, mass effect or midline shift. Moderate low attenuation in the white matter consistent with chronic microvascular ischemia. PARANASAL SINUSES: Clear. SKULL BASE AND CALVARIUM: Normal. EXTRACRANIAL SOFT TISSUES: Large right frontal scalp hematoma. CT/CT head/brain wo con IMPRESSION: 1. No acute intracranial abnormality. 2. Large right frontal scalp hematoma. Electronically authenticated by: TRENTON CARPIO Date: 06/27/2024 11:04
--- NOTE | 2024-06-27 10:18 | ED.FALL1 ---
HPI HPI - Fall General Chief Complaint: Fall Stated Complaint: FALL Time Seen by Provider: 06/27/24 10:09 History of Present Illness HPI Narrative: 79-year-old female presents for an injury to her forehead. She has dementia and she fell, unwitnessed. She has a hematoma to the right forehead and she does not know what happened. No other apparent injuries. She has no complaint of pain in her extremities. She does not take blood thinners. No vomiting. Related Data Home Medications ?Medication ?Instructions ?Recorded ?Confirmed atorvastatin 20 mg tablet 20 mg PO DAILY 06/27/24 06/27/24 donepezil 10 mg tablet 10 mg PO .hs 06/27/24 06/27/24 donepezil 5 mg tablet 5 mg PO .hs 06/27/24 06/27/24 fluoxetine 20 mg capsule 20 mg PO DAILY 06/27/24 06/27/24 oxybutynin chloride 10 mg 10 mg PO DAILY 06/27/24 06/27/24 tablet,extended release 24 hr Allergies Allergy/AdvReac Type Severity Reaction Status Date / Time ciprofloxacin Allergy Intermediate Abdominal Verified 05/08/24 09:49 Pain sulfamethoxazole Allergy Intermediate Verified 05/08/24 09:49 [From Bactrim] trimethoprim [From Bactrim] Allergy Intermediate Verified 05/08/24 09:49 Opioid HPI Opioid Management Most Recent Pain and Opioid Data: Last ED Pain Assessment 06/27/24 10:29 Review of Systems ROS Narrative A ten point review of systems is negative except as noted above. Exam Narrative Exam Narrative: Nurses note and vital signs reviewed and patient is not hypoxic. General: The patient appears well and in no apparent distress. Patient is resting comfortably on cart. Skin: Warm, dry, no pallor noted. There is no rash noted. Head: Normocephalic, hematoma to the right upper forehead Eye: Normal conjunctiva, no drainage Ears, Nose, Mouth, and Throat: oral mucosa is moist. Nares patent. Cardiovascular: Regular Rate and Rhythm Respiratory: Patient is in no distress, no accessory muscle use, lungs are clear to auscultation, no wheezing, rales or rhonchi Back: non-tender GI: Soft and nontender Musculoskeletal: No palpable tenderness to 4 extremities with all joints having full range of motion Neurological: Awake and alert Psychiatric: Cooperative Constitutional Vital Signs, click to edit/add: Last Vital Signs Temp 98.4 F 06/27/24 10:15 Pulse 76 06/27/24 10:15 Resp 16 06/27/24 10:15 BP 167/104 H 06/27/24 10:15 Pulse Ox 97 06/27/24 10:15 O2 Del Method Room Air 06/27/24 10:15 Course Vital Signs Vital signs: Vital Signs Temperature 98.4 F 06/27/24 10:15 Pulse Rate 76 06/27/24 10:15 Respiratory Rate 16 06/27/24 10:15 Blood Pressure 167/104 H 06/27/24 10:15 Pulse Oximetry 97 06/27/24 10:15 Oxygen Delivery Method Room Air 06/27/24 10:15 Temperature 98.4 F 06/27/24 10:15 Pulse Rate 76 06/27/24 10:15 Respiratory Rate 16 06/27/24 10:15 Blood Pressure 167/104 H 06/27/24 10:15 Pulse Oximetry 97 06/27/24 10:15 Oxygen Delivery Method Room Air 06/27/24 10:15 MDM - Fall MDM Narrative Medical decision making narrative: CT brain and CT C-spine are negative and the patient is able to be discharged home. Findings are discussed with the patient's . Differential Diagnosis Differential diagnosis: Likely other (Intracranial hemorrhage, forehead contusion, C-spine fracture) Imaging Data CT scan - head: Radiologist's impression: ITS Impressions Cervical Spine CT 06/27/24 10:17 IMPRESSION: 1. No acute fracture is visualized in the cervical spine. 2. Discogenic change and facet arthropathy as described above with grade 1 anterolisthesis at C4-C5 and C5-C6. There is multilevel foraminal narrowing as described above by level without central stenosis. The foraminal narrowing includes moderately severe right foraminal narrowing at C5-C6 and C6-C7. Electronically authenticated by: TRIP PACE Date: 06/27/2024 11:[address] 06/27/24 10:17 IMPRESSION: 1. No acute intracranial abnormality. 2. Large right frontal scalp hematoma. Electronically authenticated by: TRENTON CARPIO Date: 06/27/2024 11:04 Discharge Plan Discharge Stand Alone Forms: Portal Instructions Chief Complaint: Fall Clinical Impression: Traumatic hematoma of forehead Patient Disposition: Home, Self-Care Time of Disposition Decision: 11:35 Condition: Good Mode of Transportation: Private Vehicle Prescriptions / Home Meds: No Action atorvastatin 20 mg tablet 20 mg PO DAILY donepezil 10 mg tablet 10 mg PO .hs donepezil 5 mg tablet 5 mg PO .hs oxybutynin chloride 10 mg tablet extended release 24hr 10 mg PO DAILY fluoxetine 20 mg capsule 20 mg PO DAILY Print Language: [place] Instructions: Hematoma (ED), Facial Contusion (ED) Referrals: Damon Fink MD [Primary Care Provider] - 1 week
== END 2024-06-27 12:03 | disposition home or self-care (01) ==
PROVIDERS: Emergency Provider Emergency Medicine; PCP Family Medicine
DX: S00.83XA Contusion of other part of head, initial encounter (principal); F03.90 Unspecified dementia, unspecified severity, without behavioral disturbance, psychotic disturbance, mood disturbance, and anxiety; W19.XXXA Unspecified fall, initial encounter
CPT/HCPCS: 70450; 72125; 99284

== ENCOUNTER 2024-07-02 12:25 | Outpatient (OUT) | payer MEDICARE, OTHER, SELFPAY ==
--- OUTSIDE RECORDS SUMMARY | 2024-07-02 12:32 | XMS_ITS | CCD ---
Author Organization [facility] Care Team Providers Care Digital Marketing Strategist Name Role Phone Beata Ngo Attending Unavailable RACHEL, DAMON Primary Care Physician Luisito Sierra Unavailable Unavailable RACHEL, DR DAMON Dove Admitting Unavailable RACHEL, DR DAMON Dove Primary Care Unavailable RACHEL, DR DAMON Dove Attending Unavailable RAVEN, DR CARLIN Mandel Consulting Unavailable RACHEL, DR DAMON Dove Consulting Unavailable Damon Ramos MD Primary Care Provider DAMON RAMOS Attending Unavailable RACHEL, DAMON Attending Unavailable DAMON RAMOS Attending Unavailable AMARA TRIMBLE Attending Unavailable Juan M TINAJERO Attending Unavailable Genoveva Gamez Attending Unavailable Allergies Allergy Classification Reported Allergen(s) Allergy Type Date of Onset Reaction(s) Facility (7 sources) Sulfamethoxazole / Trimethoprim; Translations: [sulfamethoxazole-tr imethoprim] Drug Allergy 01-28-20 17 Unknown (qualifier value), Itching [facility] (4 sources) Ciprofloxacin Drug Allergy 11-29-20 20 Other, Dizziness [facility] (4 sources) Sulfamethoxazole Allergy to substance 07-08-20 Rash [facility] (4 sources) Trimethoprim Drug Allergy 07-08-20 Rash [facility] Medications Current Medications Medication Drug Class(es) Dates Sig (Normalized) Sig (Original) Fiorinal (2 sources) Platelet Aggregation Inhibitor, Barbiturate, Nonsteroidal Anti-inflammatory Drug, Central Nervous System Stimulant, Methylxanthine Start: 08-18-2019 Fiorinal Oral, q6hr Start Date: 08/18/19 Status: Ordered Aspirin / butalbital / Caffeine (1 source) Start: 08-18-2019 Fiorinal Oral, q6hr Start Date: 08/18/19 Status: Ordered atorvastatin (7 sources) HMG-CoA Reductase Inhibitor Start: 05-07-2024 take 1 mg by mouth once daily Atorvastatin Active MG PO Daily May 07, 2024 12:00am Start: 08-18-2019 take 1 tablet by latonya th once daily atorvastatin 20 mg Tab 20 mg = 1 tab(s), Oral, Daily Start Date: 08/18/19 Status: Ordered donepezil (4 sources) Start: 05-07-2024 take 1 mg by mouth o nce daily Donepezil Active MG PO Daily May 07, 2024 12:00am Start: 01-08-2024 take 1 tablet by latonya th at bedtime donepezil (Aricept) 5 MG tablet Indications: Senile dementia (CMS/HCC) Take 1 tablet (5 mg) by mouth at bedtime 30 tablet 2 01/08/2024 Active estradiol 0.1 mg/ml vaginal cream (3 sources) Estrogen Start: 11-17-2023 Estrace 0.1 mg /g Cream 1 gram, Vaginal, MonWedFri, 42.5 gram, Refill(s) 5, Apply one gram 3x/ week., [facility], 163, cm, 06/13/23 9:44:00 EDT, Height/Length Dosing, 64, kg, 06/13/23 9:44:00 EDT, Weight Dosing Start Date: 11/17/23 Status: Ordered Start: 04-01-2023 Estrace 0.1 mg /g Cream 1 gram, Vaginal, MonWedFri, 42.5 gram, Refill(s) 5, Apply one gram 3x/ week., [facility], 163, cm, 06/10/22 11:26:00 EDT, Height/Length Dosing, 74, kg, 06/10/22 11:26:00 EDT, Weight Dosing Start Date: 04/01/23 Status: Ordered Start: 11-19-2021 Estrace 0.1 mg /g Cream 1 gram, Vaginal, MonWedFri, 42.5 gram, Refill(s) 5, Apply one gram 3x/ week., [facility], 163, cm, 11/19/21 10:42:00 EST, Height/Length Dosing, 74, kg, 11/19/21 10:42:00 EST, Weight Dosing Start Date: 11/19/21 Status: Ordered FLUoxetine (7 sources) Serotonin Reuptake Inhibitor Start: 05-07-2024 take 1 mg by mouth once daily Fluoxetine Active MG PO Daily May 07, 2024 12:00am Start: 08-18-2019 take 1 capsule by mo pah once daily FLUoxetine 10 mg Cap 10 mg = 1 cap(s), Oral, Daily Start Date: 08/18/19 Status: Ordered hydroCHLOROthiazide 25 mg / triamterene 37.5 mg oral tablet (6 sources) Potassium-sparing Diuretic, Thiazide Diuretic Start: 04-04-2023 triamterene-hydrochlorothiaz mia (Maxzide-25) 37.5-25 MG tablet Start: 08-18-2019 take 1 tablet by mouth once da bria Maxzide 1 tab(s), Oral, Daily Start Date: 08/18/19 Status: Ordered nortriptyline 10 mg oral capsule (6 sources) Tricyclic Antidepressant Start: 08-18-2019 take 1 capsule by mouth at bedtime nortriptyline (Pamelor) 10 MG capsule Take 1 capsule by mouth at bedtime 0 06/23/2023 Active triamcinolone acetonide 5 mg/ml topical cream (3 [...] unspecified] Onset: 01-08-2024 01-08-2024 Episodic Anxiety disorders (6 sources) Anxiety; Translations: [Generalized anxiety disorder] Onset: 11-04-2023 08-11-2019 Chronic Chronic kidney disease (3 sources) Chronic kidney disease stage 3A ; Translations: [Chronic kidney disease, stage 3a (HCC)] Onset: 11-04-2023 11-04-2023 Chronic Delirium, dementia, and amnestic and other cognitive disorders (5 sources) Senile dementia; Translations: [Unspecified dementia without behavioral disturbance] Onset: 11-04-2023 01-08-2024 Chronic Disorders of lipid metabolism (7 sources) Hypercholesterolemia; Translations: [Hyperlipidemia, unspecified] Onset: 07-30-2022 08-11-2019 Chronic Esophageal disorders (3 sources) Gastroesophageal reflux disease; Translations: [Gastro-esophageal reflux disease without esophagitis] Onset: 11-04-2023 11-04-2023 Chronic Essential hypertension (10 sources) Hypertensive disorder; Translations: [Essential (primary) hypertension] Onset: 07-24-2022 08-11-2019 Chronic Genitourinary symptoms and ill-defined conditions (10 sources) Stress incontinence (female) (male); Translations: [Genuine stress incontinence] Onset: 06-10-2022 Chronic Genitourinary symptoms and ill-defined conditions (11 sources) Sensation as if bladder still full; Translations: [Feeling of incomplete bladder emptying] Onset: 06-10-2022 Episodic Headache; including migraine (6 sources) Migraine; Translations: [Migraine without aura, not refractory ] Onset: 11-04-2023 08-11-2019 Chronic Mood disorders (3 sources) Recurrent major depressive episodes, moderate ; Translations: [Major depressive disorder, recurrent, moderate] Onset: 11-04-2023 11-04-2023 Chronic Other aftercare (1 source) Other terminal gauger (current) drug therapy; Translations: [OTH DOWEL INSPECTOR CURRENT DRUG THERAPY] Onset: 07-30-2022 Episodic Other aftercare (3 sources) Patient encounter status; Translations: [Other terminal gauger (current) drug therapy] Onset: 11-04-2023 11-04-2023 Episodic [...] [Insomnia, unspecified] Onset: 11-04-2023 11-04-2023 Episodic Unclassified (3 sources) Asymptomatic microscopic hematuria 11-17-2020 Unclassified (3 sources) Finding of sensation of bladder 08-11-2019 Urinary tract infections (5 sources) Chronic cystitis; Translations: [Other chronic cystitis without hematuria] Onset: 06-10-2022 Chronic Urinary tract infections (4 sources) Postinfective urethral stricture of female; Translations: [Postinfective urethral stricture, not elsewhere classified, female] Onset: 06-13-2023 11-17-2020 Episodic Results Test Name Value Interpretation Reference Range Facility ALL CBC WITH AUTO DIFFon BASOPHILS ABSOLUTE AUTO 0.0 [facility] Basophils/100 WBC (Bld) 0.5 % 0.2 - 2.0 % [facility] Eosinophils/100 WBC (Bld) 1.8 % 0.9 - [...] [facility] TBH EO # 0.1 [facility] PLT 295 [facility] TB RBC 4.06 Low [facility] TB WBC 6.6 [facility] Ambulatory Visit Summaryon 0 06-13-2023 Ambulatory Visit Summary CAPRI SERRANO :1945 Visit Date:06/13/2023 Ambulatory Visit Instructions Your Diagnosis Chronic cystitis Feeling of incomplete bladder emptying Urge incontinence Postinfective urethral stricture in female Tests Performed Urnls Dip Stick Auto w/o Microscopy POC [id number] Your Care Team Attending Physician - Juan [...] Juan M Mandel Where: [facility] Patient Educationon 06-13-20 23 Patient Education [...] health care provider. General instructions ? Take npxr-odg-sywecnh and prescription medicines only as told by [...] all f (more content not included)... Normal [facility] Urology Office/Clinic Noteon 06-13-2023 Urology [...] Contact Information JOE WHITTAKER, Juan M Mandel, [facility] [address], [place] [address]- Additional Instructions: 1 year Patient Education Overactive [...] Dipstick: Negative (more content not included)... Normal [facility] Comment on above: Result Comment: Elec tronically Signed By: Juan M TINAJERO MD\.br\Date and Time Signed: 06/13/23 10:28 EDT\.br\Electronically Co-Signed By: Any Rosas\.br\Date and Time Co-Signed: 06/13/23 10:26 EDT CBC AUTO DIFFon 07-24-2022 BASO # 0.0 103/ul Normal 0.0-0.1 [facility] Comment on above: Performed By: #### C BC #### [facility] [address] [address] [address] Finn Wolff Basophils/100 WBC (Bld) 0.6 % Normal 0.2-2.0 [facility] Comment on above: Performed By: #### C BC #### [facility] [address] [address] [address] Finn Wolff EO # 0.1 103/ul Normal 0.0-0.7 [facility] Comment on above: Performed By: #### C BC #### [facility] [address] [address] [address] Finn Wolff Eosinophils/100 WBC (Bld) 1.5 % Normal 0.9-7.0 [facility] Comment on above: Performed By: #### C BC #### [facility] [address] [address] [address] Finn Wolff Erythrocyte distribution width (RBC) [Ratio] 13.1 % Normal 11.0-15.0 [facility] Comment on above: Performed By: #### C BC #### [facility] [address] [place] [address] Dr. Finn Wolff Hematocrit (Bld) [Volume fraction] 42.0 % Normal 36.0-48.0 [facility] Comment on above: Performed By: #### C BC #### [facility] [address] [address] [address] Finn Wolff Hemoglobin (Bld) [Mass/Vol] 14.0 g/dL Normal 12.0-16.0 [facility] Comment on above: Performed By: #### C BC #### [facility] [address] [address] [address] Finn Wolff IG # 0.01 10e3/ul Normal 0.00-0.03 [facility] Comment on above: Performed By: #### C BC #### [facility] [address] [place] [address] Dr. Finn Wolff IG % 0.2 % Normal 0.0-0.5 [facility] Comment on above: Performed By: #### C BC #### [facility] [address] [place] [address] Dr. Finn Wolff LYMPH # 1.1 103/ul Critically low 1.2-3.8 [facility] Comment on above: Performed By: #### C BC #### [facility] [address] [place] [address] Dr. Finn Wolff Lymphocytes/100 WBC (Bld) 21.1 % Normal 20.5-60.0 [facility] Comment on above: Performed By: #### C BC #### [facility] [address] [place] [address] Dr. Finn Wolff MANUAL DIFF REQ NO Normal [facility] Comment on above: Performed By: #### C BC #### [facility] [address] [place] [address] Dr. Finn Wolff MCH (RBC) [Entitic mass] 33.4 pg Normal 26.7-34.0 [facility] Comment on above: Performed By: #### C BC #### [facility] [address] [place] [address] Dr. Finn Wolff MCHC (RBC) [Mass/Vol] 33.3 g/dL Normal 29.9-35.2 [facility] Comment on above: Performed By: #### C BC #### [facility] [address] [address] [address] Finn Wolff MCV (RBC) [Entitic vol] 100.2 fL Critically high 81.0-99.0 [facility] Comment on above: Performed By: #### C BC #### [facility] [address] [address] [address] Finn Wolff MONO # 0.7 103/ul Normal 0.3-0.8 [facility] Comment on above: Performed By: #### C BC #### [facility] [address] [address] [address] Finn Wolff Monocytes/100 WBC (Bld) 12.5 % Critically high 1.7-12.0 [facility] Comment on above: Performed By: #### C BC #### [facility] [address] [place] [address] Dr. Finn Wolff NEUT # 3.4 103/ul Normal 1.4-6.5 [facility] Comment on above: Performed By: #### C BC #### [facility] [address] [address] [address] Finn Wolff Neutrophils/100 WBC (Bld) 64.1 % Normal 43.0-75.0 [facility] Comment on above: Performed By: #### C BC #### [facility] [address] [address] [address] Finn Wolff Platelet mean volume (Bld) [Entitic vol] 10.7 fL Normal 9.5-13.5 [facility] Comment on above: Performed By: #### C BC #### [facility] [address] [address] [address] Finn Wolff PLT 262 103/ul Normal 150-450 [facility] Comment on above: Performed By: #### C BC #### [facility] [address] [address] [address] Finn Wolff RBC 4.19 106/ul Critically low 4.20-5.40 [facility] Comment on above: Performed By: #### C BC #### [facility] [address] [address] [address] Finn Wolff WBC 5.4 103/ul Normal 4.0-11.0 [facility] Comment on above: Performed By: #### C BC #### [facility] [address] [place] [address] Dr. Finn Wolff LIPID PROFILEon 07-24-2022 CHOL-HDL RATIO NORM SEE BELOW Normal [facility] Comment on above: Result Comment: 3.3 - 4.4 LOW RISK 4.4 - 7.1 AVERAGE RISK 7.1 - 11.0 MODERATE RISK >11.0 HIGH RISK Performed By: #### A LT, AST, LIPID, BMP #### [facility] [address] [place] [address] Dr. Finn Wolff Cholesterol [Mass/Vol] 141 mg/dL Normal <=200 [facility] Comment on above: Performed By: #### A LT, AST, LIPID, BMP #### [facility] [address] [place] [address] Dr. Finn Wolff Cholesterol in HDL [Mass/Vol] 68 mg/dL Critically high 40-60 [facility] Comment on above: Performed By: #### A LT, AST, LIPID, BMP #### [facility] [address] [place] [address] Dr. Finn Wolff Cholesterol in LDL [Mass/Vol] 52.6 mg/dL Normal [facility] Comment on above: Performed By: #### A LT, AST, LIPID, BMP #### [facility] [address] [place] [address] Dr. Finn Wolff Cholesterol.total/C holesterol in HDL [Mass ratio] 2.1 {ratio} Normal [facility] Comment on above: Performed By: #### A LT, AST, LIPID, BMP #### [facility] [address] [place] [address] Dr. Finn Wolff HDL NORMAL > or = 60 mg/dl - LO W CARDIOVASCULAR RISK <40 mg/dl - HIGH CARDIOVASCULAR RISK Normal [facility] Comment on above: Performed By: #### A LT, AST, LIPID, BMP #### [facility] [address] [address] [address] Finn Wolff LDL CALC NORMAL SEE BELOW Normal [facility] Comment on above: Result Comment: <100 mg/dl OPTIMAL 100 - 129 mg/dl NEAR OR ABOVE OPTIMAL 130 - 159 mg/dl BORDERLINE HIGH 160 - 189 mg/dl HIGH >190 mg/dl VERY HIGH Performed By: #### A LT, AST, LIPID, BMP #### [facility] [address] [address] [address] Finn Wolff Triglyceride [Mass/Vol] 102 mg/dL Normal <=150 [facility] Comment on above: Performed By: #### A LT, AST, LIPID, BMP #### [facility] [address] [address] [address] Finn Wolff VLDL CALC 20.4 mg/dL Normal [facility] Comment on above: Performed By: #### A LT, AST, LIPID, BMP #### [facility] [address] [address] [address] Finn Wolff MG MAMM SCREEN 3D MAU CADon 07-24-2022 MG MAMM SCREEN 3D MAU CAD Patient: CAPRI SERRANO Exam Date: 07/24/2022 : 1945 Gender:F Ordering : DR DAMON RAMOS . Admission #: [id number] Family : Order #: [id number] CLICK HERE TO VIEW EXAM RADIOLOGY REPORT [...] Treatments None Family Cancers None LOCATION: [facility] BREAST COMPOSITION: Heterogeneously dense,which may obscure small [...] Leigh M.D. on 07/26/2022 at 12:49 Normal [facility] PROF CHEM 8 (BAS METB)on Anion gap [Moles/Vol] 9.6 mmol/L Normal [facility] Comment on above: Performed By: #### A LT, AST, LIPID, BMP #### [facility] [address] [address] [address] Finn Wolff Calcium [Mass/Vol] 8.9 mg/dL Normal 8.5-10.1 [facility] Comment on above: Performed By: #### A LT, AST, LIPID, BMP #### [facility] [address] [address] [address] Finn Wolff Chloride [Moles/Vol] 100 mmol/L Normal 98-107 [facility] Comment on above: Performed By: #### A LT, AST, LIPID, BMP #### [facility] [address] [address] [address] Finn Wolff CO2 [Moles/Vol] 31.7 mmol/L Normal 21.0-32.0 [facility] Comment on above: Performed By: #### A LT, AST, LIPID, BMP #### [facility] [address] [address] [address] Finn Wolff Creatinine [Mass/Vol] 1.15 mg/dL Critically high 0.55-1.02 [facility] Comment on above: Performed By: #### A LT, AST, LIPID, BMP #### [facility] [address] [address] [address] Finn Wolff EGFR-AF IRISH 56 mL/min/1.73m2 Critically low >=60 [facility] Comment on above: Performed By: #### A LT, AST, LIPID, BMP #### [facility] [address] [address] [address] Finn Wolff EGFR-NON AF IRISH 46 mL/min/1.73m2 Critically low >=60 [facility] Comment on above: Performed By: #### A LT, AST, LIPID, BMP #### [facility] [address] [place] [address] Dr. Finn Wolff Glucose [Mass/Vol] 88 mg/dL Normal 74-106 [facility] Comment on above: Performed By: #### A LT, AST, LIPID, BMP #### [facility] [address] [place] [address] Dr. Finn Wolff Potassium [Moles/Vol] 3.3 mmol/L Critically low 3.5-5.1 [facility] Comment on above: Performed By: #### A LT, AST, LIPID, BMP #### [facility] [address] [place] [address] Dr. Finn Wolff Sodium [Moles/Vol] 138 mmol/L Normal 136-145 [facility] Comment on above: Performed By: #### A LT, AST, LIPID, BMP #### [facility] [address] [place] [address] Dr. Finn Wolff Urea nitrogen [Mass/Vol] 19.0 mg/dL Critically high 7.0-18.0 [facility] Comment on above: Performed By: #### A LT, AST, LIPID, BMP #### [facility] [address] [place] [address] Dr. Finn Wolff Urea nitrogen/Creatinine [Mass ratio] 16.5 mg/mg Normal [facility] Comment on above: Performed By: #### A LT, AST, LIPID, BMP #### [facility] [address] [place] [address] Dr. Finn Wolff SGOTon 07-24-2022 AST [Catalytic activity/Vol] 23 U/L Normal 15-37 [facility] Comment on above: Performed By: #### A LT, AST, LIPID, BMP #### [facility] [address] [place] [address] Dr. Finn MENDENHALLPTon 07-24-2022 ALT [Catalytic activity/Vol] 21 U/L Normal 14-59 [facility] Comment on above: Performed By: #### A LT, AST, LIPID, BMP #### [facility] [address] [place] [address] Dr. Finn Wolff Urine Cultureon 2019 Bacteria identified Cx Nom (U) Reason for Exam Dysuria Urine ORGANISM: Escherichia coli (O:ESCCOL) [place] Count 50,000 Aerobic DANAE Charge (Neg) --- [...] RESISTANT TO ALL B-LACTAM DRUGS. PERFORMED BY: [place] [address] PATHOLOGIST PUBLIC SPACE ATTENDANT SCARLETT WHIPPLE M.D. Normal [facility] Comment on above: Performed By: #### C UU #### [address] Vital Signs Date Time Vital Sign Value Performing Clinician Facility 05-07-2024 13:20-0400 Body height 162.56 cm [facility] 05-07-2024 13:20-0400 Body mass index (BMI) [Ratio] 25 kg/m2 [facility] 05-07-2024 13:20-0400 Body temperature 98.2 [degF] [facility] 05-07-2024 13:20-0400 Body weight 66 kg [facility] 05-07-2024 13:20-0400 Diastolic blood pressure 74 mm[Hg] [facility] 05-07-2024 13:20-0400 Heart rate 67 /min [facility] 05-07-2024 13:20-0400 Respiratory rate 16 /min [facility] 05-07-2024 13:20-0400 SaO2% (BldA) [Mass fraction] 96 % [facility] 05-07-2024 13:20-0400 Systolic blood pressure 132 mm[Hg] [facility] 01-08-2024 10:52-0500 Body height 167.6 [...] Location Juan M TINAJERO [facility] 06-13-2023 09:42-0400 Diastolic blood pressure 76 mm[Hg] Juan M TINAJERO [facility] 06-13-2023 09:42-0400 Heart rate 80 /min Juan M TINAJERO [facility] 06-13-2023 09:42-0400 Respiratory rate 16 /min Juan M TINAJERO [facility] 06-13-2023 09:42-0400 Systolic blood pressure 120 mm[Hg] Juan M TINAJERO [facility] Encounters Encounter Date Encounter Type Care Provider Facility Start: 05-18-2024 End: 05-18-2024 ambulatory Genoveva X Orkitch Facility:[facility] Start: 05-18-2024 End: 05-18-2024 Patient encounter procedure Genoveva X Orzech [facility] Start: 05-12-2024 End: 05-12-2024 ambulatory AMARA TRIMBLE Not Available Start: 05-07-2024 End: 05-07-2024 ambulatory [facility] Work Phone: Start: 05-07-2024 End: 05-07-2024 Patient encounter procedure [facility] Work Phone: Start: 03-22-2024 End: 03-22-2024 ambulatory DAMON RAMOS Not Available Start: 01-13-2024 [facility] Result Encounter Damon Ramos MD Work Phone: [facility] External Department Unsolicited Start: 01-13-2024 [facility] Result Encounter Damon Ramos MD Work Phone: [facility] External Department Unsolicited Start: 01-08-2024 End: 01-08-2024 ambulatory DAMON RAMOS Not Available Start: 01-08-2024 End: 01-08-2024 Office outpatient visit 15 minutes Damon Ramos MD Work Phone: [facility] Comment on above: Dermatitis (Primary Dx); Senile dementia (CMS/HCC) Start: 11-04-2023 Patient encounter procedure Damon Ramos MD Work Phone: [facility] Start: 11-04-2023 End: 11-04-2023 ambulatory DAMON RAMOS Not Available Start: 06-13-2023 End: 06-13-2023 ambulatory Juan M TINAJERO Facility:[facility] Start: 06-13-2023 End: 06-13-2023 Patient encounter procedure Juan M TINAJERO [facility] Start: 07-24-2022 End: 07-25-[address] DAMON RAMOS Facility: Start: 06-10-2022 End: 06-10-2022 Patient encounter procedure Juan M TINAJERO [facility] Start: 2019 End: 2019 Patient encounter procedure Beata Ngo Facility:[facility] Procedures Date Procedure Procedure Detail Performing Clinician Start: 01-13-2024 ALL CBC WITH AUTO DIFF Damon Ramos MD Work Phone: Start: 12-10-2021 Dilation of urethra Aaliyah TINAJERO Start: 02-17-2019 Cystoscopy Juan M GUERRERO Start: 11-04-2014 Cystourethroscopy wi th dilation of urethral stricture Juan M TINAJERO Comment on above: 3/19/19 Plan of Treatment Date Care Activity Detail Author Start: 11-04-2024 Medicare Annual Wellness (AWV) Medicare Annual Wellness (AWV) [facility] Start: 07-08-2024 End: 07-08-2024 Patient encounter procedure 07/08/2024 10:20 AM EDT Office Visit [facility] [address] [place] [address] Lina Rayo APRN-[employer] [address] [place] [address] [facility] Start: 05-05-2024 End: 05-05-2024 Patient encounter procedure 05/05/2024 9:30 AM EDT Office Visit [facility] [address] [place] [address] Damon Ramos MD [address] [place] [phone] [facility] Start: 02-10-2024 End: 02-10-2024 Patient encounter procedure 02/10/2024 10:15 AM EDT Office Visit [facility] [address] [place] [address] Damon Ramos MD [address] [place] [address] [facility] Start: 08-01-2023 Influenza vaccination Influenza Vaccine (#1) [facility] Start: 2012 Pneumococcal Vaccine: 65+ Years (1 - PCV) Pneumococcal Vaccine: 65+ Years (1 - PCV) [facility] Bacteria identified in Urine by Culture [facility] Immunizations Immunization Date Immunization Notes Care Provider Fa cility NEGATED: Highlighted row has not occurred!11-17-2020 influenza virus vaccine, unspecified formulation Juan M TINAJERO [facility] Payers Date Payer Category Payer Medicare [id number] 2019 Medicare [id number] 2019 Self-pay 2017 Managed Care HMO (unspecified) EDIE IRIZARRY [id number] 2017-Present [address] [place] [address] HMO [id number] 2012 Medicare MEDICARE MEDICAR E PART B [id number] 2012-Present [address] [address] [place] [address] Medicare [id number] 1959 Medicare [id number] 1959 Private Health Insurance [id number] 1947 Unknown [id number]. 2.593 1947 Unknown [id number] [id number]. 2.1259 1947 Unknown [id number] [id number]. 2.1259 1947 Unknown [id number] [id number]. 2.1259 1947 Unknown [id number] 2.16.840.1.128523.3.579. 2.1259 1947 Unknown [id number] [id number]. 2.727 1945 Unknown [id number] [id number]. 2.727 Unknown [id number] [id number]. 2.531 Social History Date Type Detail Facility Start: 11-19-2021 End: 06-13-2023 Tobacco smoking status Never smoked tobacco (finding) [facility] Start: 11-04-2023 End: 01-08-2024 Sex Assigned At Female [facility] Tobacco smoking status Never [facility] Start: 09-25-2023 Tobacco use and exposure [...] Start: 1945 Sex Assigned At Female F [facility] Functional Status Date Assessment Result Facility 06-13-2023 Functional Status N/A [facility] 06-10-2022 Functional Status N/A [facility] History of Present illness Narrative 01-08-2024 [...] your health care provider. General instructions Take ciet-hcl-aaryrdl and prescription medicines only as told by [...] provider. Document Revised: 08/06/2021 Document Reviewed: 08/06/2021 [employer] Patient Education 2022 [employer]. 06/13/2023 10:25:57 Overactive Bladder, Adult Overactive Bladder, [...] your health care provider. General instructions Take tvbk-jvp-hxjiozl and prescription medicines only as told by [...] provider. Document Revised: 08/06/2021 Document Reviewed: 08/06/2021 [employer] Patient Education 2022 [employer]. Follow Up Care 06/10/2022 11:38:49 With:JOE WHITTAKER, Juan M Mandel, URL Address: [facility] [address] [place] [address]- When: Unknown [facility] Discharge instructions 06-10-2022 Note Date & [...] for grilled meats. Avoid extra toppings like duarn, cheese, or fried items. Ask for the [...] 11/17/2006 Document Revised: 08/06/2019 Document Reviewed: 10/17/2017 [employer] Patient Education 2020 [employer]. 06/10/2022 11:37:25 Urinary Tract Infection, Adult, Cvbt-kv-Eahw Urinary Tract Infection, Adult A urinary tract [...] Follow these instructions at home: Medicines Take onuv-exp-juscxjl and prescription medicines only as told by [...] 05/05/2009 Document Revised: 11/04/2019 Document Reviewed: 05/27/2019 [employer] Patient Education 2020 [employer]. Follow Up Care 12/10/2021 10:50:41 With:JOE WHITTAKER, Juan M Mandel, URL Address: [facility] [address], [place] [phone] When:Within 1 Year(s) Comments:1 year fu [facility] Evaluation + Plan note Note Date & Type Note Facility Evaluation + Plan note Future Appointments Appointment Date:06/13/2023 09:30:00 AM Scheduled Provider:Juan M TINAJERO MD Location:[facility] Appointment Type:URO Office Visit [facility] Evaluation + Plan note Note Date & Type Note Facility Evaluation + Plan note Future Appointments Appointment Date:06/14/2024 08:45:00 AM Scheduled Provider:Juan M TINAJERO MD Location:[facility] Appointment Type:URO Office Visit [facility] Evaluation note Note Date & Type Note Facility Evaluation note Diagnosis Dermatitis- Primary Contact dermatitis and other eczema, due to unspecified cause Senile dementia ([facility]) Senile dementia, uncomplicated documented in this encounter [facility] Evaluation note Note Date & Type Note Facility Evaluation note [facility] Hospital course Narrative Note Date & Type Note Facility Hospital course Narrative No data available for this section [facility] Hospital Discharge instructions Note Date & Type Note Facility Hospital Discharge instructions No data available for this section [facility] Progress note Note Date & Type Note Facility Progress note No data available for this section [facility] Summary Purpose Family History No Family History Records Found Relationship Condition Age at Onset Recorded Date/T luis father Unknown Not Specified Unknown Advance Directives No Advanced Directives Records Found Advance Directive Response Recorded Date/ Time Advance Directives No August 9:36am Chief Complaint and Reason for Visit Chief Complaint Poss uti Additional Source Comments INFORMATION SOURCE (unrecogn ized section and content) DATE CREATED AUTHOR 01/19/2019 [facility] DATE CREATED AUTHOR AUTHOR'S ORGANIZ ATION 07/31/2022 [facility] DATE CREATED AUTHOR AUTHOR'S ORGANIZ ATION 05/13/2024 [facility] EPIC DATE CREATED AUTHOR AUTHOR'S ORGANIZ ATION 05/20/2024 [facility] Care Team (unrecognized sect ion and content) Digital Marketing Strategist Relationship Specialty Start Date End Date Damon Ramos MD [address] [place] [phone] PCP - General Family Medicine 01/08/24 Digital Marketing Strategist Relationship Specialty Start Date End Date Damon Ramos MD [address] [place] [phone] PCP - General Family Medicine 01/08/24 Team [...] BE BASED ON THE PRIMARY CLINICAL RECORDS. [employer] [facility] provides no warranty or guarantee of the accuracy or completeness of information in this document.
[2024-07-02 12:44] LABS: Basophils Percent Auto 0.3 % (0.2-2.0); Eosinophils Absolute Auto 0.1 10^3/uL (0.0-0.7); Eosinophils Percent Auto 0.9 % (0.9-7.0); Hematocrit 38.6 % (36.0-48.0); Hemoglobin 12.7 g/dL (12.0-16.0); Immature Granulocytes Abs Auto 0.02 10^3/uL (0.00-0.03); Immature Granulocytes Pct Auto 0.3 % (0.0-0.5); Lymphocytes Absolute Auto 1.1 10^3/uL (1.2-3.8); Lymphocytes Percent Auto 16.3 % (20.5-60.0); Mean Corpuscular HGB Conc 32.9 g/dL (29.9-35.2); Mean Corpuscular Volume 100.3 fL (81.0-99.0); Mean Platelet Volume 10.4 fL (9.5-13.5); Monocytes Absolute Auto 0.8 10^3/uL (0.3-0.8); Neutrophils Absolute Auto 4.9 10^3/uL (1.4-6.5); Neutrophils Percent Auto 71.2 % (43.0-75.0); Platelet Count 260 10^3/uL (150-450); Red Blood Count 3.85 10^6/uL (4.20-5.40); Red Cell Distribution Width 13.3 % (11.0-15.0); White Blood Count 6.9 10^3/uL (4.0-11.0)
[2024-07-02 13:20] LABS: Bilirubin Urine NEGATIVE (NEGATIVE); Blood Urine LARGE (NEGATIVE); Clarity Urine SL CLOUDY (CLEAR); Color Urine YELLOW (YELLOW); Glucose Urine UA NEGATIVE (NEGATIVE); Ketones Urine NEGATIVE (NEGATIVE); Leukocyte Esterase Urine TRACE (NEGATIVE); Nitrite Urine POSITIVE (NEGATIVE); Protein Urine 30 mg/dL (NEG/TRACE); Specific Gravity Urine 1.025 (1.005-1.025)
[2024-07-02 13:20] LABS: Estimated Average Glucose 103 mg/dL; Glycohemoglobin A1C 5.2 % (4.5-6.2)
[2024-07-02 13:23] LABS: Urine Microscopic Indicated YES
[2024-07-02 13:36] LABS: Bacteria Urine LARGE #/HPF (NONE SEEN); Mucus Urine SMALL (NONE SEEN); RBC Urine 75-100 #/HPF (0-2); WBC Urine 20-50 #/HPF (NONE SEEN)
[2024-07-02 13:37] LABS: Calcium Oxalate Crystals Urine FEW; Cast Seen? NONE SEEN #/LPF (NONE SEEN); Crystals Seen? Seen #/HPF (None Seen); Squamous Epithelial Cell Urine MODERATE #/LPF (NONE/RARE)
[2024-07-02 14:08] LABS: Alanine Aminotransferase 18 U/L (14-59); Albumin Globulin Ratio 0.9; Albumin Level 3.4 g/dL (3.4-5.0); Alkaline Phosphatase 75 U/L (46-116); Anion Gap 9.5; Aspartate Amino Transferase 23 U/L (15-37); BUN Creatinine Ratio 8.5; Bilirubin Direct 0.2 mg/dL (0.0-0.2); Bilirubin Total 0.6 mg/dL (0.2-1.0); Carbon Dioxide 31.8 mmol/L (21.0-32.0); Chloride 103 mmol/L (98-107); Estimated GFR (African America 49 (>=60); Estimated GFR (Non-African Ame 40 (>=60); Globulin 3.6 g/dL; Glucose 119 mg/dL (74-106); Potassium 3.3 mmol/L (3.5-5.1); Sodium 141 mmol/L (136-145)
== END 2024-07-02 12:26 | disposition home or self-care (01) ==
LOC: LAB 12:25
PROVIDERS: PCP Family Medicine; Visit Provider Family Medicine
DX: N18.31 Chronic kidney disease, stage 3a (principal); R73.03 Prediabetes; Z79.899 Other long term (current) drug therapy; N39.41 Urge incontinence
CPT/HCPCS: 36415; 80048; 80076; 81001; 83036; 85025; 87086; 87150; 87186